=== PATIENT | female | born 1930 ===

== ENCOUNTER 2017-06-12 18:23 | Inpatient (IN) | payer MEDICARE ==
[2017-06-12 20:47] VITALS: BMI 22.4
[2017-06-12] MEDS ORDERED: Pneumococcal 23-Valent Vaccine IM ONE (20:47)
--- NOTE | 2017-06-12 22:08 | CP.PCM.HP ---
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 She was determined to have urosepsis ESBL E. coli, managed on IV Merrem. She was determined to be medically stable, and was transferred to [facility] as per her PMD (Aditya) for rehab. Today, patient reports no acute complaints. Daughter at bedside, reports pt at baseline mentation. Daughter reports dementia is at level where pt is occasionally forgetful, but always recognizes family, home, and is able to perform most ADLs (bathing, eating, dressing) by herself. Pt denies complaints of fever, chills, chest pain, shortness of breath , hematuria, dysuria, nausea, emesis, diarrhea, constipation, or new focal weakness. Has mainly intact ROM and use of R arm but diminished strength as compared to left. Denies lightheadedness, dizziness, room-spinning, or syncope/ near-syncope. Attributes falls to poor balance. Denies paresthesias of lower extremities. Daughter reports patient knows to call for help before ambulating , but occasionally forgets, and as per daughter, pt did have a fall while at [facility]. All other ROS in 12-system review were negative. As per discussion with daughter, as per patient's wishes, code status is DNR/ DNI. Charting amended to reflect this. PMH: as above PSH: right eye cataract extraction, tonsillectomy Fam Hx: father (hepatitis), brother (myelodysplastic disease, 17 PRBC transfusions), sister (DM), Social Hx: no smoking, alcohol, or drug abuse history. Lives with daughters, alternates monthly Person to Notify is Daughter: Paty (primary caregiver, NOT POA, pt has no POA) [phone] Present on Admission - Present on Admission Any Indicators Present on Admission: No History of DVT/PE: No History of Uncontrolled Diabetes: No Urinary Catheter: No Review of Systems - Review of Systems All systems: reviewed and no additional remarkable complaints except (as per HPI ) Past Patient History - Infectious Disease Hx of Infectious Diseases: None - Tetanus Immunizations Tetanus Immunization: Unknown - Past Medical History & Family History Past Medical History?: Yes - Past Social History Smoking Status: Former Smoker - CARDIAC Hx Hypertension: No - PULMONARY Hx Respiratory Disorders: Yes Hx Bronchitis: Yes Hx Pneumonia: Yes - NEUROLOGICAL Hx Neurological Disorder: Yes Hx Alzheimer's Disease: Yes Hx Dementia: Yes - HEENT Hx HEENT Problems: Yes Hx Cataracts: Yes (BOTH EYES) - RENAL Hx Chronic Kidney Disease: No - ENDOCRINE/METABOLIC Hx Diabetes Mellitus Type 2: Yes (IDDM) - HEMATOLOGICAL/ONCOLOGICAL Hx Blood Disorders: Yes Hx Anemia: Yes Hx Blood Transfusions: Yes Hx Chemotherapy: Yes Hx Leukemia: Yes - INTEGUMENTARY Hx Dermatological Problems: No - MUSCULOSKELETAL/RHEUMATOLOGICAL Hx Falls: Yes - GASTROINTESTINAL Hx Gastrointestinal Disorders: No - GENITOURINARY/GYNECOLOGICAL Hx Genitourinary Disorders: Yes (esbl /uti sepsis,SOME INCONTINENCY.WEARS PULLUPS.) Hx Reproductive Disorders: No - PSYCHIATRIC Hx Psychophysiologic Disorder: No Hx Substance Use: No - SURGICAL HISTORY Hx Surgeries: Yes Hx Tonsillectomy: Yes Other/Comment: HX:RIGHT SUBCLAVIAN PORTACATH INSERTION 08/06/16 - ANESTHESIA Hx Anesthesia: Yes Hx Anesthesia Reactions: No Hx Malignant Hyperthermia: No Meds Allergies/Adverse Reactions: Allergies Allergy/AdvReac Type Severity Reaction Status Date / Time amoxicillin Allergy Mild RASH Verified 06/12/17 20:26 Physical Exam - Constitutional Appears: Non-toxic, No Acute Distress - Head Exam Head Exam: ATRAUMATIC, NORMAL INSPECTION, NORMOCEPHALIC - Eye Exam Eye Exam: EOMI, Normal appearance, PERRL. absent: Conjunctival injection, Scleral icterus Pupil Exam: NORMAL ACCOMODATION, PERRL. absent: Irregular, Unequal - ENT Exam ENT Exam: Mucous Membranes Moist, Normal Exam - Neck Exam Neck exam: Positive for: Full Rom, Normal Inspection. Negative for: Lymphadenopathy, Thyromegaly - Respiratory Exam Respiratory Exam: Clear to Auscultation Bilateral, NORMAL BREATHING PATTERN. absent: Accessory Muscle Use, Chest Wall Tenderness, Decreased Breath Sounds, Rales, Rhonchi, Wheezes - Cardiovascular Exam Cardiovascular Exam: REGULAR RHYTHM, RRR, +S1, +S2. absent: Bradycardia, Tachycardia, Irregular Rhythm, JVD, +S4 - GI/Abdominal Exam GI & Abdominal Exam: Normal Bowel Sounds, Soft. absent: Diminished Bowel Sounds , Firm, Guarding, Hyperactive Bowel Sounds, Hypoactive Bowel Sounds, Rigid, Tenderness - Extremities Exam Extremities exam: Positive for: normal capillary refill, normal inspection, pedal pulses present. Negative for: calf tenderness, pedal edema, tenderness - Neurological Exam Additional comments: awake and alert, feeding self with right hand at time of exam, moving all extremities spontaneously, following all commands appropriately pushes off of chair to stand, only pushes with left arm, right arm normally in sling 5/5 hand household appliance installer bilaterally, 5/5 bilateral LE strength, 5/5 LUE strength, 3-4/5 RUE strength bilateral UE ROM grossly intact and equal - Psychiatric Exam Psychiatric exam: Normal Affect, Normal Mood - Skin Skin Exam: Dry, Intact, Normal Color, Warm Results - Vital Signs Recent Vital Signs: Last Vital Signs Temp 98.8 F 06/12/17 20:32 Pulse 83 06/12/17 20:32 Resp 18 06/12/17 20:32 BP 150/67 06/12/17 20:32 Pulse Ox Assessment & Plan - Assessment and Plan (Free Text) Assessment: This is an 87 yo F with PMH of DM-2 on insulin, HTN, 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 She was determined to have urosepsis ESBL E. coli, managed on IV Merrem. She was transferred to [facility] for reconditioning while continuing IV abx. Plan: 1) UTI -Sepsis secondary to UTI -Initial Criteria at [facility]: Febrile (Tmax 103F), WBC 13.5, 19 bands; afebrile today, wbcs 5.7 -UA (06/03/17): 3+ LE, 4669 WBC, Many WBC clumps, moderate bacteria -Urine Culture (06/03/17): ESBL -B/C: E.coli. Sensitive to Merrem -Was on Merrem 500mg Q8H IV (started 06/04/17) to receive for 2 weeks, Benadryl 25 mg IV PRN Q8H for pruritus/rash following carbapenem administration -ID (Dr. Joaquin) consulted to continue Merrem -Renal U/S normal findings at [facility] 2) Bacteremia -Positive blood cultures noted 06/04 for ESBL e.coli. Sensitive to Merrem. Will need coverage for 2 weeks as per [facility] ID -Repeat cultures positive 06/07 for Coag Neg Staph, Probable contaminant; Blood cultures 06/09 Negative after 48 hours. 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 Gomez) to confirm -Hgb stable, high 9's-10's since transfusion 2 units pRBCs at [facility] 06/04/17; 10.2 today -EKG on admit - NSR, intervals unremarkable, no ST-T changes -Monitor temp. -As per Heme-onc at [facility], transfuse prn 4) MDS -Following with Dr. Gomez (Heme-onc) for outpatient treatment -As per his last note at [facility], transfuse PRN 5) DM -Levemir 10 U SC HS, Lispro low ISS ACHS -Accuchecks ACHS 6) CAD -Aspirin 81 mg PO daily 7) HTN -continue Lisinopril Dispo: TCU, pending ID eval, pending PT FEN: Heart-healthy consistent carb Access: Peripheral IV Consults: ID Ppx: Pepcid for GI, SCDs for DVT Patient reviewed and discussed with attending, Dr. Beckman Decision To Admit - Pt Status Changed To: Hospital Disposition Of: Inpatient Admission - Admit Certification Admit to Inpatient:: After my assessment, the patient will require hospitalization for at least two midnights. This is because of the severity of symptoms shown, intensity of services needed, and/or the medical risk in this patient being treated as an outpatient. - . Bed Request Type: TRCU <Slava Beckman - Last Filed: 06/13/17 05:24> Results - Vital Signs Recent Vital Signs: Last Vital Signs Temp 98.8 F 06/12/17 20:32 Pulse 83 06/12/17 20:32 Resp 18 06/12/17 20:32 BP 150/67 06/12/17 20:32 Pulse Ox - Labs Labs: Laboratory Results - last 24 hr 06/13/17 01:49 POC Glucose (mg/dL) 222 H Attending/Attestation - Attestation I have personally seen and examined this patient.: Yes I have fully participated in the care of the patient.: Yes I have reviewed all pertinent clinical information: Yes
[2017-06-12] MEDS ORDERED: DiphenhydrAMINE 50 mg/ml Inj IVP PRN (22:13)
[2017-06-12] MEDS: Meropenem 500 MG in Sodium Chloride 0.9% 50 ML IVPB SCH (22:42)
[2017-06-12] MEDS: Insulin Lispro (humaLOG) LOW Coverage SC SCH (22:42)
[2017-06-12] MEDS: Insulin Detemir 100 units/ml Vial (Levemir) SC SCH (22:44)
[2017-06-13] MEDS: Meropenem 500 MG in Sodium Chloride 0.9% 50 ML IVPB SCH (05:08)
[2017-06-13] MEDS: Insulin Lispro (humaLOG) LOW Coverage SC SCH ×4 (06:41→22:01)
[2017-06-13 08:50] LABS: BASO # 0.04 K/mm3 (0.0-2.0); BASO % 0.7 % (0.0-3.0); EOS # 0.3 (0.0-0.7); EOS % 5.9 % (1.5-5.0); GRAN # 2.86 (1.4-6.5); GRAN % 53.1 % (50.0-68.0); LYMPH # 1.8 (1.2-3.4); LYMPH % 33.3 % (22.0-35.0); MEAN CELL VOLUME 98.3 fl (80.0-105.0); MEAN CORPUSCULAR HEMOGLOBIN 33.4 pg (25.0-35.0); MEAN PLATELET VOLUME 12.1 fl (7.0-11.0); MONO # 0.4 (0.1-0.6); RBC 2.99 10^6/uL (3.5-6.1); RED CELL DISTRIBUTION WIDTH 19.5 % (11.5-14.5); WHITE BLOOD COUNT 5.4 10^3/ul (4.5-11.0)
[2017-06-13 08:56] LABS: ALBUMIN 3.9 g/dL (3.0-4.8); ALT/SGPT 27 U/L (7-56); AST/SGOT 44 U/L (14-36); BLOOD UREA NITROGEN 32 mg/dL (7-21); GFR AFRICAN-AMERICAN > 60; GFR NON-AFRICAN AMERICAN 52
[2017-06-13] MEDS: Multivitamin With Minerals Tab PO SCH (10:31)
[2017-06-13] MEDS: Insulin Detemir 100 units/ml Vial (Levemir) SC SCH (22:01)
[2017-06-13] MEDS: Meropenem IV 1 gm in NS 50 ML IVPB SCH (22:02)
[2017-06-14] MEDS: Meropenem IV 1 gm in NS 50 ML IVPB SCH ×2 (05:41→22:03)
[2017-06-14] MEDS: Insulin Lispro (humaLOG) LOW Coverage SC SCH ×4 (06:51→21:28)
--- NOTE | 2017-06-14 07:26 | CON ---
DATE: 06/13/2017 LOCATION: The patient was seen earlier this morning in room 315. CHIEF COMPLAINT: Weakness times several days. HISTORY OF PRESENT ILLNESS: This is an 87-year-old female with hypertension, diabetes, myelodysplastic syndrome, mild dementia, high cholesterol, anemia, and a history of right proximal humerus fracture without any surgery, who was admitted to [facility] found to have ESBL E. coli bacteremia with ESBL E. coli urinary tract infection, and transferred to transitional care here in [facility] in room 315 for completion of her antibiotic therapy. At this point, patient is at baseline mental status. There has been no fevers, no chills. There is frequency and dysuria. No chest pain. REVIEW OF SYSTEMS: A 12-point review of systems is noted. There has been no chest pain, shortness of breath, or cough. No hemoptysis, melena, diarrhea or constipation. PAST MEDICAL HISTORY: Significant for hypertension, diabetes mellitus, myelodysplastic syndrome, dementia, high cholesterol, anemia, right proximal humerus fracture with a sling. PAST SURGICAL HISTORY: Significant for right eye extraction and tonsillectomy. ALLERGIES: PATIENT IS ALLERGIC TO AMOXICILLIN, SHE DEVELOPED RASH. MEDICATIONS: Reviewed. PHYSICAL EXAMINATION: VITAL SIGNS: The patient's temperature is 98, blood pressure is 137/60, respiratory rate of 18, heart rate of 73. HEENT: Unremarkable. NECK: Supple. LUNGS: Have decreased breath sounds. HEART: Normal S1, S2. ABDOMEN: Soft, nontender. LABORATORY EXAMINATION: Reveals white count of 5.4, hemoglobin of 10, platelets of 224. Chemistries reveals the patient's BUN is 32, creatinine is 1. Microbiology: Reveals the patient's blood cultures of E. coli ESBL from 06/04/2017, reported to be positive E. coli in the urine, E. coli n the blood. Repeat blood cultures on the 06/09/2017 were negative and no growth. ASSESSMENT AND PLAN: This is an 87-year-old female with hypertension, diabetes, myelodysplastic syndrome, dementia, high cholesterol, anemia, right proximal humerus fracture with extended-spectrum beta-lactamase bacteremia with extended-spectrum beta-lactamase Escherichia coli urinary tract infection. Will complete 10 to 14 days of meropenem. We will follow with you. Jonathan Joaquin MD [facility] # [id number]
[2017-06-14] MEDS: Multivitamin With Minerals Tab PO SCH (09:51)
--- NOTE | 2017-06-14 15:48 | CP.PCM.PN ---
<Misael Waters - Last Filed: 06/14/17 15:44> Subjective - Date & Time of Evaluation Date of Evaluation: 06/14/17 Time of Evaluation: 07:30 - Subjective Subjective: IM Progress Note for Hospitalist Service Patient seen and examined at bedside in TCU. No acute complaints, no acute events overnight reported. Eating breakfast at time of exam. Denies chest pain , shortness of breath, dysuria, abdominal pain. Reports walking well with PT. Objective - Vital Signs/Intake and Output Vital Signs (last 24 hours): Temp Pulse Resp BP Pulse Ox 98.0 F 88 20 150/78 96 06/14/17 12:00 06/14/17 12:00 06/14/17 12:00 06/14/17 12:00 06/14/17 06:00 - Medications Medications: Current Medications Acetaminophen (Tylenol 325mg Tab) 650 mg PO Q6H PRN PRN Reason: Fever >100.4 F Aspirin (Aspirin Chewable) 81 mg PO DAILY [facility] Last Admin: 06/14/17 09:51 Dose: 81 mg Diphenhydramine HCl (Benadryl) 25 mg IVP Q8 PRN PRN Reason: Pruritis/Rash s/p Merrem admin Famotidine (Pepcid) 20 mg PO HS [facility] Last Admin: 06/13/17 22:03 Dose: 20 mg Meropenem (Merrem Iv 1 Gm Premix) 50 mls @ 100 mls/hr IVPB Q12 VERONICA PRN Reason: Protocol Stop: 06/22/17 22:01 Insulin Detemir (Levemir) 10 unit SC HS [facility] Last Admin: 06/13/17 22:01 Dose: 10 unit Insulin Human Lispro (Humalog Low) 0 units SC ACHS VERONICA PRN Reason: Protocol Last Admin: 06/14/17 11:39 Dose: Not Given Lisinopril (Zestril) 2.5 mg PO DAILY [facility] Last Admin: 06/14/17 09:51 Dose: 2.5 mg Multivitamins/Minerals (Therapeutic-M Tab) 1 tab PO DAILY [facility] Last Admin: 06/14/17 09:51 Dose: 1 tab Mupirocin (Bactroban Ointment) 22 gm TOP BID [facility] Last Admin: 06/14/17 09:51 Dose: 1 applic Tramadol HCl (Ultram) 50 mg PO TID PRN PRN Reason: Pain, severe (8-10) - Labs Labs: 06/13/17 06:45 06/13/17 06:45 - Additional Findings Additional findings: - Constitutional Appears: Non-toxic, No Acute Distress - Head Exam Head Exam: ATRAUMATIC, NORMAL INSPECTION, NORMOCEPHALIC - Eye Exam Eye Exam: EOMI, Normal appearance, PERRL. absent: Conjunctival injection, Scleral icterus Pupil Exam: NORMAL ACCOMODATION, PERRL. absent: Irregular, Unequal - ENT Exam ENT Exam: Mucous Membranes Moist, Normal Exam - Neck Exam Neck exam: Positive for: Full Rom, Normal Inspection. Negative for: Lymphadenopathy, Thyromegaly - Respiratory Exam Respiratory Exam: Clear to Auscultation Bilateral, NORMAL BREATHING PATTERN. absent: Accessory Muscle Use, Chest Wall Tenderness, Decreased Breath Sounds, Rales, Rhonchi, Wheezes - Cardiovascular Exam Cardiovascular Exam: REGULAR RHYTHM, RRR, +S1, +S2. absent: Bradycardia, Tachycardia, Irregular Rhythm, JVD, +S4 - GI/Abdominal Exam GI & Abdominal Exam: Normal Bowel Sounds, Soft. absent: Diminished Bowel Sounds , Firm, Guarding, Hyperactive Bowel Sounds, Hypoactive Bowel Sounds, Rigid, Tenderness - Extremities Exam Extremities exam: Positive for: normal capillary refill, normal inspection, pedal pulses present. 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 She was determined to have urosepsis ESBL E. coli, managed on IV Merrem. She was transferred to [facility] for reconditioning while continuing IV abx. Plan: 1) UTI -Sepsis secondary to UTI -Initial Criteria at [facility]: Febrile (Tmax 103F), WBC 13.5, 19 bands; afebrile today, wbcs 5.7 on admission to TCU -UA (06/03/17): 3+ LE, 4669 WBC, Many WBC clumps, moderate bacteria -Urine Culture (06/03/17): ESBL -B/C: E.coli. Sensitive to Merrem -Was on Merrem 500mg Q8H IV (started 06/04/17) to receive for 2 weeks, Benadryl 25 mg IV PRN Q8H for pruritus/rash following carbapenem administration -ID (Dr. Joaquin) consulted to continue Merrem -Renal U/S normal findings at [facility] 2) Bacteremia -Positive blood cultures noted 06/04 for ESBL e.coli. Sensitive to Merrem. Will need coverage for 2 weeks as per [facility] ID -Repeat cultures positive 06/07 for Coag Neg Staph, Probable contaminant; Blood cultures 06/09 Negative after 48 hours. 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 Gomez) to confirm -Hgb stable, high 9's-10's since transfusion 2 units pRBCs at [facility] 06/04/17; 10.2 on admission to TCU -EKG on admit - NSR, intervals unremarkable, no ST-T changes -Monitor temp. -As per Heme-onc at [facility], transfuse prn -no complaints consistent with anemia today 4) MDS -Following with Dr. Gomez (Heme-onc) for outpatient treatment -As per his last note at [facility], transfuse PRN 5) DM -Levemir 10 U SC HS, Lispro low ISS ACHS -Accuchecks ACHS 6) CAD -Aspirin 81 mg PO daily 7) HTN -continue Lisinopril Dispo: TCU, continuing IV Merrem for ESBL E coli, undergoing strengthening, planned date of d/c 06/20/17 FEN: Heart-healthy consistent carb Access: Peripheral IV Consults: ID Ppx: Pepcid for GI, SCDs for DVT Patient reviewed and discussed with attending, Dr. Thorpe <Dylan Thorpe - Last Filed: 06/15/17 13:37> Objective - Vital Signs/Intake and Output Vital Signs (last 24 hours): Temp Pulse Resp BP Pulse Ox 98.2 F 70 18 99/52 L 96 06/15/17 06:00 06/15/17 09:21 06/15/17 06:00 06/15/17 09:21 06/15/17 06:00 - Medications Medications: Current Medications Acetaminophen (Tylenol 325mg Tab) 650 mg PO Q6H PRN PRN Reason: Fever >100.4 F Aspirin (Aspirin Chewable) 81 mg PO DAILY [facility] Last Admin: 06/15/17 09:21 Dose: 81 mg Diphenhydramine HCl (Benadryl) 25 mg IVP Q8 PRN PRN Reason: Pruritis/Rash s/p Merrem admin Famotidine (Pepcid) 20 mg PO HS [facility] Last Admin: 06/14/17 21:24 Dose: 20 mg Meropenem (Merrem Iv 1 Gm Premix) 50 mls @ 100 mls/hr IVPB Q12 VERONICA PRN Reason: Protocol Stop: 06/22/17 22:01 Last Admin: 06/15/17 09:21 Dose: 100 mls/hr Insulin Detemir (Levemir) 10 unit SC HS [facility] Last Admin: 06/14/17 21:28 Dose: 10 unit Insulin Human Lispro (Humalog Low) 0 units SC ACHS VERONICA PRN Reason: Protocol Last Admin: 06/15/17 12:30 Dose: 3 units Lisinopril (Zestril) 2.5 mg PO DAILY [facility] Last Admin: 06/15/17 09:21 Dose: Not Given Multivitamins/Minerals (Therapeutic-M Tab) 1 tab PO DAILY [facility] Last Admin: 06/15/17 09:21 Dose: 1 tab Mupirocin (Bactroban Ointment) 22 gm TOP BID [facility] Last Admin: 06/15/17 11:00 Dose: 1 applic Tramadol HCl (Ultram) 50 mg PO TID PRN PRN Reason: Pain, severe (8-10) - Labs Labs: 06/13/17 06:45 06/13/17 06:45 Attending/Attestation - Attestation I have personally seen and examined this patient.: Yes I have fully participated in the care of the patient.: Yes I have reviewed all pertinent clinical information, including history, physical exam and plan: Yes Notes (Text): 06/15/17 13:33 Hospitalist note; Patient seen and examined in TCU. This is an 87 -year-old female with PMH of DM-2 on insulin, hypertension, MDS , Hypercholesterolemia, chronic anemia due to MDS, dementia, and R proximal humerus fx (s/p sling, no surgery) who presented originally to [facility] with lethargy consistent with prior anemic episodes and foul-smelling urine. She was determined to have urosepsis ESBL E. coli, managed on IV Merrem. She was transferred to [facility] for reconditioning while continuing IV abx. patient is afebrile and nontoxic. Tolerating diet. Getting physical therapy. Continue IV anti-biotics. ID evaluation appreciated. patient is DNI DNR. Patient lives with daughter at home. Home services will be arranged upon discharge. upon discharge the patient will follow-up with [facility] clinic or PMD of choice. 06/15/17 13:37
--- NOTE | 2017-06-14 19:03 | CP.PCM.PN ---
Subjective - Date & Time of Evaluation Date of Evaluation: 06/14/17 Time of Evaluation: 11:50 - Subjective Subjective: Comfortable, afebrile. Objective - Vital Signs/Intake and Output Vital Signs (last 24 hours): Temp Pulse Resp BP Pulse Ox 97.5 F L 79 18 141/60 98 06/13/17 16:59 06/13/17 16:59 06/13/17 16:59 06/13/17 16:59 06/13/17 16:59 - Medications Medications: Current Medications Acetaminophen (Tylenol 325mg Tab) 650 mg PO Q6H PRN PRN Reason: Fever >100.4 F Aspirin (Aspirin Chewable) 81 mg PO DAILY [facility] Last Admin: 06/13/17 10:30 Dose: 81 mg Diphenhydramine HCl (Benadryl) 25 mg IVP Q8 PRN PRN Reason: Pruritis/Rash s/p Merrem admin Famotidine (Pepcid) 20 mg PO HS [facility] Last Admin: 06/13/17 22:03 Dose: 20 mg Meropenem (Merrem Iv 1 Gm Premix) 50 mls @ 100 mls/hr IVPB Q8 VERONICA PRN Reason: Protocol Stop: 06/22/17 22:01 Last Admin: 06/13/17 22:02 Dose: 100 mls/hr Insulin Detemir (Levemir) 10 unit SC HS [facility] Last Admin: 06/13/17 22:01 Dose: 10 unit Insulin Human Lispro (Humalog Low) 0 units SC ACHS VERONICA PRN Reason: Protocol Last Admin: 06/13/17 22:01 Dose: Not Given Lisinopril (Zestril) 2.5 mg PO DAILY [facility] Last Admin: 06/13/17 10:31 Dose: 2.5 mg Multivitamins/Minerals (Therapeutic-M Tab) 1 tab PO DAILY [facility] Last Admin: 06/13/17 10:31 Dose: 1 tab Mupirocin (Bactroban Ointment) 22 gm TOP BID [facility] Last Admin: 06/13/17 17:56 Dose: 1 applic Tramadol HCl (Ultram) 50 mg PO TID PRN PRN Reason: Pain, severe (8-10) - Labs Labs: 06/13/17 06:45 06/13/17 06:45 - Constitutional Appears: Chronically Ill - Head Exam Head Exam: NORMAL INSPECTION - Respiratory Exam Respiratory Exam: Decreased Breath Sounds - Cardiovascular Exam Cardiovascular Exam: +S1, +S2 - GI/Abdominal Exam GI & Abdominal Exam: Soft. absent: Tenderness Assessment and Plan - Assessment and Plan (Free Text) Plan: Assessment ESBL E. coli bacteremia from UTI history of sepsis from community-acquired pneumonia history of Right vulvar skin and skin structure infection with discharge, grew MRSA histor of Asymptomatic bacteriuria with VRE HTN DM myelodysplastic disease mild dementia Plan continue Merrem day 3 to complete 10-14 days of therapy
[2017-06-14] MEDS: Insulin Detemir 100 units/ml Vial (Levemir) SC SCH (21:28)
[2017-06-15] MEDS: Insulin Lispro (humaLOG) LOW Coverage SC SCH ×4 (06:39→21:45)
[2017-06-15] MEDS: Meropenem IV 1 gm in NS 50 ML IVPB SCH ×2 (09:21→21:37)
[2017-06-15] MEDS: Multivitamin With Minerals Tab PO SCH (09:21)
--- NOTE | 2017-06-15 19:07 | PN ---
DATE: 06/15/2017 SUBJECTIVE: The patient is in bed, in no acute distress, nontoxic. OBJECTIVE: VITAL SIGNS: Temperature is 98, blood pressure is 98/40, respiratory rate of 18, heart rate of 74. HEENT: Unremarkable. NECK: Supple. LUNGS: Decreased breath sounds. HEART: Normal S1, S2. ABDOMEN: Soft, nontender. LABORATORY EXAMINATION: Reviewed. ASSESSMENT AND PLAN: This is an 87-year-old female with extended-spectrum beta-lactamase Escherichia coli bacteremia with extended-spectrum beta-lactamase Escherichia coli urinary tract infection with a history of sepsis and community-acquired pneumonia, history of right lobe of methicillin-resistant Staphylococcus aureus, history of bacteriuria with vancomycin-resistant Enterococcus, hypertension, diabetes, myelodysplastic disease, and mild dementia. Today is day #4 of 10 to 14 days meropenem and patient's white count of 5.4. Chemistries are noted. Creatinine is 1. Review of orders revealed the patient to be on meropenem. Jonathan Joaquin MD
[2017-06-15] MEDS: Insulin Detemir 100 units/ml Vial (Levemir) SC SCH (21:38)
[2017-06-16] MEDS: Insulin Lispro (humaLOG) LOW Coverage SC SCH ×4 (06:42→22:00)
[2017-06-16] MEDS: Multivitamin With Minerals Tab PO SCH (10:19)
[2017-06-16] MEDS: Meropenem IV 1 gm in NS 50 ML IVPB SCH ×2 (10:21→21:59)
--- NOTE | 2017-06-16 11:22 | CP.PCM.PN ---
<Ankush Ellison - Last Filed: 06/16/17 11:11> Subjective - Date & Time of Evaluation Date of Evaluation: 06/16/17 Time of Evaluation: 10:00 - Subjective Subjective: Subjective: Patient seen and examined at bedside. Resting comfortably in bedside chair. No acute overnight events. Patient states therapy is helping improve her functional baseline. Offers no new complaints at this time. Denies fever, chills , chest pain, shortness of breath, abdominal pain, nausea, vomiting, diarrhea, constipation, and urinary symptoms. 12-point review of systems negative except as indicated in the HPI Physical Examination: - Constitutional Appears: Non-toxic, No Acute Distress - Head Exam Head Exam: ATRAUMATIC, NORMAL INSPECTION, NORMOCEPHALIC - Eye Exam Eye Exam: EOMI, Normal appearance, PERRL. absent: Conjunctival injection, Scleral icterus - ENT Exam ENT Exam: Mucous Membranes Moist, Normal Exam - Neck Exam Neck exam: Positive for: Full Rom, Normal Inspection. Negative for: Lymphadenopathy, Thyromegaly - Respiratory Exam Respiratory Exam: Clear to Auscultation Bilateral, NORMAL BREATHING PATTERN. absent: Accessory Muscle Use, Chest Wall Tenderness, Decreased Breath Sounds, Rales, Rhonchi, Wheezes - Cardiovascular Exam Cardiovascular Exam: REGULAR RHYTHM, RRR, +S1, +S2. absent: Bradycardia, Tachycardia, Irregular Rhythm, JVD, +S4 - GI/Abdominal Exam GI & Abdominal Exam: Normal Bowel Sounds, Soft. absent: Diminished Bowel Sounds , Firm, Guarding, Hyperactive Bowel Sounds, Hypoactive Bowel Sounds, Rigid, Tenderness - Extremities Exam Extremities exam: right arm in sling, Positive for: normal capillary refill, normal inspection, pedal pulses present. 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 She was determined to have urosepsis ESBL E. coli, managed on IV Merrem. She was transferred to [facility] for reconditioning while continuing IV abx. UTI -Positive blood cultures noted 06/04 for ESBL e.coli. Sensitive to Merrem. 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 Gomez (Heme-onc) for outpatient treatment -As per his last note at [facility], transfuse PRN DM -Levemir 10 U SC HS, -Lispro low ISS -Accuchecks ACHS CAD -Aspirin 81 mg PO daily HTN -continue Lisinopril Prophylaxis - Pepcid for GI - SCDs for DVT Patient reviewed and discussed with attending, Dr. Thorpe Objective - Vital Signs/Intake and Output Vital Signs (last 24 hours): Temp Pulse Resp BP Pulse Ox 97.9 F 73 20 123/57 L 90 L 06/15/17 16:00 06/16/17 10:20 06/15/17 16:00 06/16/17 10:20 06/15/17 10:00 - Medications Medications: Current Medications Acetaminophen (Tylenol 325mg Tab) 650 mg PO Q6H PRN PRN Reason: Fever >100.4 F Aspirin (Aspirin Chewable) 81 mg PO DAILY [facility] Last Admin: 06/16/17 10:19 Dose: 81 mg Diphenhydramine HCl (Benadryl) 25 mg IVP Q8 PRN PRN Reason: Pruritis/Rash s/p Merrem admin Famotidine (Pepcid) 20 mg PO HS [facility] Last Admin: 06/15/17 21:38 Dose: 20 mg Meropenem (Merrem Iv 1 Gm Premix) 50 mls @ 100 mls/hr IVPB Q12 [facility] PRN Reason: Protocol Stop: 06/22/17 22:01 Last Admin: 06/16/17 10:21 Dose: 100 mls/hr Insulin Detemir (Levemir) 10 unit SC HS [facility] Last Admin: 06/15/17 21:38 Dose: 10 unit Insulin Human Lispro (Humalog Low) 0 units SC ACHS [facility] PRN Reason: Protocol Last Admin: 06/16/17 06:42 Dose: Not Given Lisinopril (Zestril) 2.5 mg PO DAILY [facility] Last Admin: 06/16/17 10:20 Dose: 2.5 mg Multivitamins/Minerals (Therapeutic-M Tab) 1 tab PO DAILY [facility] Last Admin: 06/16/17 10:19 Dose: 1 tab Mupirocin (Bactroban Ointment) 22 gm TOP BID [facility] Last Admin: 06/16/17 10:21 Dose: 1 applic Tramadol HCl (Ultram) 50 mg PO TID PRN PRN Reason: Pain, severe (8-10) - Labs Labs: 06/13/17 06:45 06/13/17 06:45 <Dylan Thorpe - Last Filed: 06/16/17 13:39> Objective - Vital Signs/Intake and Output Vital Signs (last 24 hours): Temp Pulse Resp BP Pulse Ox 97.9 F 73 20 123/57 L 90 L 06/15/17 16:00 06/16/17 10:20 06/15/17 16:00 06/16/17 10:20 06/15/17 10:00 - Medications Medications: Current Medications Acetaminophen (Tylenol 325mg Tab) 650 mg PO Q6H PRN PRN Reason: Fever >100.4 F Aspirin (Aspirin Chewable) 81 mg PO DAILY [facility] Last Admin: 06/16/17 10:19 Dose: 81 mg Diphenhydramine HCl (Benadryl) 25 mg IVP Q8 PRN PRN Reason: Pruritis/Rash s/p Merrem admin Famotidine (Pepcid) 20 mg PO HS [facility] Last Admin: 06/15/17 21:38 Dose: 20 mg Meropenem (Merrem Iv 1 Gm Premix) 50 mls @ 100 mls/hr IVPB Q12 [facility] PRN Reason: Protocol Stop: 06/22/17 22:01 Last Admin: 06/16/17 10:21 Dose: 100 mls/hr Insulin Detemir (Levemir) 10 unit SC HS [facility] Last Admin: 06/15/17 21:38 Dose: 10 unit Insulin Human Lispro (Humalog Low) 0 units SC ACHS [facility] PRN Reason: Protocol Last Admin: 06/16/17 11:47 Dose: Not Given Lisinopril (Zestril) 2.5 mg PO DAILY [facility] Last Admin: 06/16/17 10:20 Dose: 2.5 mg Multivitamins/Minerals (Therapeutic-M Tab) 1 tab PO DAILY [facility] Last Admin: 06/16/17 10:19 Dose: 1 tab Mupirocin (Bactroban Ointment) 22 gm TOP BID [facility] Last Admin: 06/16/17 10:21 Dose: 1 applic Tramadol HCl (Ultram) 50 mg PO TID PRN PRN Reason: Pain, severe (8-10) - Labs Labs: 06/13/17 06:45 06/13/17 06:45 Attending/Attestation - Attestation I have personally seen and examined this patient.: Yes I have fully participated in the care of the patient.: Yes I have reviewed all pertinent clinical information, including history, physical exam and plan: Yes Notes (Text): 06/16/17 13:39 Hospitalist note; Patient seen and examined in TCU. This is an 87 -year-old female with PMH of DM-2 on insulin, hypertension, MDS , Hypercholesterolemia, chronic anemia due to MDS, dementia, and R proximal humerus fx (s/p sling, no surgery) who presented originally to [facility] with lethargy consistent with prior anemic episodes and foul-smelling urine. She was determined to have urosepsis ESBL E. coli, managed on IV Merrem. She was transferred to [facility] for reconditioning while continuing IV abx. patient is afebrile and nontoxic. Tolerating diet. Getting physical therapy. R humerus fracture. on sling. Continue IV anti-biotics. ID evaluation appreciated. patient is DNI DNR. Patient lives with daughter at home. Home services will be arranged upon discharge. upon discharge the patient will follow-up with [facility] clinic or PMD of choice.
[2017-06-16] MEDS: Insulin Detemir 100 units/ml Vial (Levemir) SC SCH (22:00)
--- NOTE | 2017-06-16 22:27 | PN ---
DATE: 06/16/2017 SUBJECTIVE: The patient is in bed, in no acute distress, nontoxic. PHYSICAL EXAMINATION: VITAL SIGNS: Temperature is 98, blood pressure is 120/70, respiratory rate of 16. HEENT: Unremarkable. NECK: Supple. LUNGS: Decreased breath sounds. HEART: Normal S1, S2. ABDOMEN: Soft, nontender. LABORATORY EXAMINATION: Revels a white count of 5.4 and chemistries are noted and reviewed. Review of orders revel the patient to be on meropenem. ASSESSMENT AND PLAN: This is an 87-year-old female who was seen earlier this morning in room 315 with extended-spectrum beta-lactamase Escherichia coli bacteremia and extended-spectrum beta-lactamase Escherichia coli urinary tract infection, history of sepsis with community-acquired pneumonia, history of right methicillin-resistant Staphylococcus aureus, history of bacteriuria and vancomycin-resistant Enterococcus, diabetes, myelodysplastic syndrome, and mild dementia. Today is day #5 of 10 to 14 days of meropenem. We will follow with you. Jonathan Joaquin MD
[2017-06-17] MEDS: Insulin Lispro (humaLOG) LOW Coverage SC SCH ×4 (06:44→21:25)
[2017-06-17] MEDS: Multivitamin With Minerals Tab PO SCH (09:37)
[2017-06-17] MEDS: Meropenem IV 1 gm in NS 50 ML IVPB SCH ×2 (09:37→21:22)
[2017-06-17 18:21] LABS: BASO # 0.06 K/mm3 (0.0-2.0); BASO % 1.1 % (0.0-3.0); EOS # 0.3 (0.0-0.7); EOS % 5.9 % (1.5-5.0); GRAN % 54.9 % (50.0-68.0); HEMOGLOBIN 9.9 g/dL (12.0-16.0); LYMPH # 1.8 (1.2-3.4); LYMPH % 33.3 % (22.0-35.0); MEAN CELL VOLUME 99.7 fl (80.0-105.0); MEAN CORPUSCULAR HEMOGLOBIN 34.1 pg (25.0-35.0); MEAN CORPUSCULAR HGB CONC 34.3 g/dl (31.0-37.0); MEAN PLATELET VOLUME 11.7 fl (7.0-11.0); MONO # 0.3 (0.1-0.6); MONO % 4.8 % (1.0-6.0); RBC 2.9 10^6/uL (3.5-6.1); RED CELL DISTRIBUTION WIDTH 19.7 % (11.5-14.5); WHITE BLOOD COUNT 5.5 10^3/ul (4.5-11.0)
[2017-06-17 18:50] LABS: CALCIUM 9.2 mg/dL (8.4-10.5)
[2017-06-17] MEDS: Insulin Detemir 100 units/ml Vial (Levemir) SC SCH (21:25)
--- NOTE | 2017-06-17 21:48 | CP.PCM.PN ---
Subjective - Date & Time of Evaluation Date of Evaluation: 06/17/17 Time of Evaluation: 11:50 - Subjective Subjective: No fevers, no nausea, not in distress. Objective - Vital Signs/Intake and Output Vital Signs (last 24 hours): Temp Pulse Resp BP Pulse Ox 98.1 F 61 18 117/82 95 06/17/17 17:37 06/17/17 17:37 06/17/17 17:37 06/17/17 17:37 06/17/17 17:37 - Medications Medications: Current Medications Acetaminophen (Tylenol 325mg Tab) 650 mg PO Q6H PRN PRN Reason: Fever >100.4 F Aspirin (Aspirin Chewable) 81 mg PO DAILY [facility] Last Admin: 06/17/17 09:37 Dose: 81 mg Diphenhydramine HCl (Benadryl) 25 mg IVP Q8 PRN PRN Reason: Pruritis/Rash s/p Merrem admin Famotidine (Pepcid) 20 mg PO HS [facility] Last Admin: 06/17/17 21:22 Dose: 20 mg Meropenem (Merrem Iv 1 Gm Premix) 50 mls @ 100 mls/hr IVPB Q12 [facility] PRN Reason: Protocol Stop: 06/22/17 22:01 Last Admin: 06/17/17 21:22 Dose: 100 mls/hr Insulin Detemir (Levemir) 10 unit SC HS [facility] Last Admin: 06/17/17 21:25 Dose: Not Given Insulin Human Lispro (Humalog Low) 0 units SC ACHS [facility] PRN Reason: Protocol Last Admin: 06/17/17 21:25 Dose: Not Given Lisinopril (Zestril) 2.5 mg PO DAILY [facility] Last Admin: 06/17/17 09:36 Dose: 2.5 mg Multivitamins/Minerals (Therapeutic-M Tab) 1 tab PO DAILY [facility] Last Admin: 06/17/17 09:37 Dose: 1 tab Mupirocin (Bactroban Ointment) 22 gm TOP BID [facility] Last Admin: 06/17/17 17:30 Dose: 1 applic Tramadol HCl (Ultram) 50 mg PO TID PRN PRN Reason: Pain, severe (8-10) - Labs Labs: 06/17/17 18:15 06/17/17 18:15 - Constitutional Appears: Chronically Ill - Head Exam Head Exam: NORMAL INSPECTION - ENT Exam ENT Exam: Mucous Membranes Moist - Neck Exam Neck Exam: absent: Meningismus - Respiratory Exam Respiratory Exam: Decreased Breath Sounds - Cardiovascular Exam Cardiovascular Exam: +S1, +S2 - GI/Abdominal Exam GI & Abdominal Exam: Soft. absent: Tenderness Assessment and Plan - Assessment and Plan (Free Text) Plan: Assessment ESBL E. coli bacteremia from UTI history of sepsis from community-acquired pneumonia history of Right vulvar skin and skin structure infection with discharge, grew MRSA histor of Asymptomatic bacteriuria with VRE HTN DM myelodysplastic disease mild dementia Plan continue Merrem day 6 to complete 10-14 days of therapy
[2017-06-18] MEDS: Insulin Lispro (humaLOG) LOW Coverage SC SCH ×5 (06:29→22:20)
[2017-06-18 07:38] LABS: BASO # 0.06 K/mm3 (0.0-2.0); BASO % 1.1 % (0.0-3.0); EOS # 0.4 (0.0-0.7); EOS % 7.2 % (1.5-5.0); GRAN # 2.65 (1.4-6.5); GRAN % 49.2 % (50.0-68.0); HEMOGLOBIN 9.1 g/dL (12.0-16.0); LYMPH # 1.8 (1.2-3.4); MEAN CELL VOLUME 99.3 fl (80.0-105.0); MEAN CORPUSCULAR HEMOGLOBIN 33.8 pg (25.0-35.0); MEAN CORPUSCULAR HGB CONC 34.1 g/dl (31.0-37.0); MEAN PLATELET VOLUME 11.7 fl (7.0-11.0); MONO # 0.5 (0.1-0.6); MONO % 8.5 % (1.0-6.0); RBC 2.69 10^6/uL (3.5-6.1); RED CELL DISTRIBUTION WIDTH 19.7 % (11.5-14.5); WHITE BLOOD COUNT 5.4 10^3/ul (4.5-11.0)
[2017-06-18 07:51] LABS: CALCIUM 9.1 mg/dL (8.4-10.5)
[2017-06-18] MEDS: Meropenem IV 1 gm in NS 50 ML IVPB SCH ×2 (09:52→21:21)
[2017-06-18] MEDS: Multivitamin With Minerals Tab PO SCH (09:53)
--- NOTE | 2017-06-18 14:05 | CP.PCM.PN ---
<Misael Waters - Last Filed: 06/18/17 14:02> Subjective - Date & Time of Evaluation Date of Evaluation: 06/18/17 Time of Evaluation: 07:40 - Subjective Subjective: IM Progress Note for Hospitalist Service Patient seen and examined at bedside in TCU. No acute complaints, no acute events overnight reported. Resting but easily arousable at time of exam. Denies chest pain, shortness of breath, dysuria, abdominal pain. Reports walking well with PT. Pending possible discharge tonight or tomorrow, as per family's wishes. Objective - Vital Signs/Intake and Output Vital Signs (last 24 hours): Temp Pulse Resp BP Pulse Ox 97.4 F L 76 20 138/57 L 100 06/18/17 11:06 06/18/17 11:06 06/18/17 11:06 06/18/17 11:06 06/18/17 11:06 - Medications Medications: Current Medications Acetaminophen (Tylenol 325mg Tab) 650 mg PO Q6H PRN PRN Reason: Fever >100.4 F Aspirin (Aspirin Chewable) 81 mg PO DAILY [facility] Last Admin: 06/18/17 09:52 Dose: 81 mg Diphenhydramine HCl (Benadryl) 25 mg IVP Q8 PRN PRN Reason: Pruritis/Rash s/p Merrem admin Famotidine (Pepcid) 20 mg PO HS [facility] Last Admin: 06/17/17 21:22 Dose: 20 mg Meropenem (Merrem Iv 1 Gm Premix) 50 mls @ 100 mls/hr IVPB Q12 [facility] PRN Reason: Protocol Stop: 06/22/17 22:01 Last Admin: 06/18/17 09:52 Dose: 100 mls/hr Insulin Detemir (Levemir) 10 unit SC HS [facility] Last Admin: 06/17/17 21:25 Dose: Not Given Insulin Human Lispro (Humalog Low) 0 units SC ACHS [facility] PRN Reason: Protocol Last Admin: 06/18/17 12:29 Dose: 4 units Lisinopril (Zestril) 2.5 mg PO DAILY [facility] Last Admin: 06/18/17 09:53 Dose: 2.5 mg Multivitamins/Minerals (Therapeutic-M Tab) 1 tab PO DAILY [facility] Last Admin: 04/24/18 09:53 Dose: 1 tab Mupirocin (Bactroban Ointment) 22 gm TOP BID [facility] Last Admin: 06/18/17 09:52 Dose: 1 applic Tramadol HCl (Ultram) 50 mg PO TID PRN PRN Reason: Pain, severe (8-10) - Labs Labs: 06/18/17 07:30 06/18/17 07:30 - Additional Findings Additional findings: - Constitutional Appears: Non-toxic, No Acute Distress - Head Exam Head Exam: ATRAUMATIC, NORMAL INSPECTION, NORMOCEPHALIC - Eye Exam Eye Exam: EOMI, Normal appearance, PERRL. absent: Conjunctival injection, Scleral icterus Pupil Exam: NORMAL ACCOMODATION, PERRL. absent: Irregular, Unequal - ENT Exam ENT Exam: Mucous Membranes Moist, Normal Exam - Neck Exam Neck exam: Positive for: Full Rom, Normal Inspection. Negative for: Lymphadenopathy, Thyromegaly - Respiratory Exam Respiratory Exam: Clear to Auscultation Bilateral, NORMAL BREATHING PATTERN. absent: Accessory Muscle Use, Chest Wall Tenderness, Decreased Breath Sounds, Rales, Rhonchi, Wheezes - Cardiovascular Exam Cardiovascular Exam: REGULAR RHYTHM, RRR, +S1, +S2. absent: Bradycardia, Tachycardia, Irregular Rhythm, JVD, +S4 - GI/Abdominal Exam GI & Abdominal Exam: Normal Bowel Sounds, Soft. absent: Diminished Bowel Sounds , Firm, Guarding, Hyperactive Bowel Sounds, Hypoactive Bowel Sounds, Rigid, Tenderness - Extremities Exam Extremities exam: Positive for: normal capillary refill, normal inspection, pedal pulses present. 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 She was determined to have urosepsis ESBL E. coli, managed on IV Merrem. She was transferred to [facility] for reconditioning while continuing IV abx. Today is IV Merrem day #14. Pending possible d/c tonight or tomorrow, depending on family's preference. Plan: 1) UTI -Sepsis secondary to UTI -Initial Criteria at [facility]: Febrile (Tmax 103F), WBC 13.5, 19 bands; afebrile today, wbcs 5.7 on admission to TCU -UA (06/03/17): 3+ LE, 4669 WBC, Many WBC clumps, moderate bacteria -Urine Culture (06/03/17): ESBL -B/C: E.coli. Sensitive to Merrem -Was on Merrem 500mg Q8H IV (started 06/05/17) to receive for 2 weeks, Benadryl 25 mg IV PRN Q8H for pruritus/rash following carbapenem administration; currently on Merrem 1g q12, today day #14, can be stopped after today as per ID -ID (Dr. Joaquin) consulted, appreciate all recs; can stop Merrem after today as today #14, course completed -Renal U/S normal findings at [facility] 2) Bacteremia -Positive blood cultures noted 06/04 for ESBL e.coli. Sensitive to Merrem. 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 Gomez) to confirm -Hgb stable, high 9's-10's since transfusion 2 units pRBCs at [facility] 06/04/17; 10.2 on admission to TCU; 9.9 yesterday, 9.1 today -EKG on admit - NSR, intervals unremarkable, no ST-T changes -Monitor temp. -As per Heme-onc at [facility], transfuse prn -no complaints consistent with anemia today 4) MDS -Following with Dr. Gomez (Heme-onc) for outpatient treatment -As per his last note at [facility], transfuse PRN 5) DM -Levemir 10 U SC HS, Lispro low ISS ACHS -Accuchecks ACHS 6) CAD -Aspirin 81 mg PO daily 7) HTN -continue Lisinopril Dispo: TCU, continuing IV Merrem for ESBL E coli (day 1414), undergoing strengthening, planned date of d/c tonight or tomorrow AM as per family's wishes FEN: Heart-healthy consistent carb Access: Peripheral IV Consults: ID Ppx: Pepcid for GI, SCDs for DVT Patient reviewed and discussed with attending, Dr. Mccoy. <Marlene Mccoy - Last Filed: 06/18/17 16:00> Objective - Vital Signs/Intake and Output Vital Signs (last 24 hours): Temp Pulse Resp BP Pulse Ox 97.4 F L 76 20 138/57 L 100 06/18/17 11:06 06/18/17 11:06 06/18/17 11:06 06/18/17 11:06 06/18/17 11:06 - Medications Medications: Current Medications Acetaminophen (Tylenol 325mg Tab) 650 mg PO Q6H PRN PRN Reason: Fever >100.4 F Aspirin (Aspirin Chewable) 81 mg PO DAILY [facility] Last Admin: 06/18/17 09:52 Dose: 81 mg Diphenhydramine HCl (Benadryl) 25 mg IVP Q8 PRN PRN Reason: Pruritis/Rash s/p Merrem admin Famotidine (Pepcid) 20 mg PO HS [facility] Last Admin: 06/17/17 21:22 Dose: 20 mg Meropenem (Merrem Iv 1 Gm Premix) 50 mls @ 100 mls/hr IVPB Q12 [facility] PRN Reason: Protocol Stop: 06/22/17 22:01 Last Admin: 06/18/17 09:52 Dose: 100 mls/hr Insulin Detemir (Levemir) 10 unit SC HS [facility] Last Admin: 06/17/17 21:25 Dose: Not Given Insulin Human Lispro (Humalog Low) 0 units SC ACHS [facility] PRN Reason: Protocol Last Admin: 06/18/17 12:29 Dose: 4 units Lisinopril (Zestril) 2.5 mg PO DAILY [facility] Last Admin: 06/18/17 09:53 Dose: 2.5 mg Multivitamins/Minerals (Therapeutic-M Tab) 1 tab PO DAILY [facility] Last Admin: 06/18/17 09:53 Dose: 1 tab Mupirocin (Bactroban Ointment) 22 gm TOP BID [facility] Last Admin: 06/18/17 09:52 Dose: 1 applic Tramadol HCl (Ultram) 50 mg PO TID PRN PRN Reason: Pain, severe (8-10) - Labs Labs: 06/18/17 07:30 06/18/17 07:30 Attending/Attestation - Attestation I have personally seen and examined this patient.: Yes I have fully participated in the care of the patient.: Yes I have reviewed all pertinent clinical information, including history, physical exam and plan: Yes Notes (Text): I have seen and examined the patient in TCU. Agree with the above note with the following additions/ exceptions: Briefly this is 87 year old female with history of DM-2 on insulin, HTN, MDS, dyslipidemia, chronic anemia due to MDS, dementia, and R proximal humerus fx (s/p sling, no surgery) who presented originally to [facility] with lethargy consistent with prior anemic episodes and foul-smelling urine. She was determined to have urosepsis ESBL E. coli, managed on IV Merrem. Patient denies any complaints. She is DNR, DNI. Patient lives with daughter at home. Home services will be arranged upon discharge. Upon discharge the patient will follow-up with [facility] clinic or PMD of choice.
[2017-06-18 17:13] VITALS: RESP 18; TEMP 98.3; O2SAT 99
[2017-06-18] MEDS: Insulin Detemir 100 units/ml Vial (Levemir) SC SCH (22:22)
--- NOTE | 2017-06-19 02:27 | PN ---
DATE: SUBJECTIVE: The patient is in bed, in no acute distress, nontoxic. PHYSICAL EXAMINATION: VITAL SIGNS: Temperature is 97, blood pressure is 130/50, respiratory rate of 22. HEENT: Unremarkable. NECK: Supple. LUNGS: Decreased breath sounds. HEART: Normal S1 and S2. ABDOMEN: Soft, nontender. LABORATORY DATA: Reveals the patient's white count is 5.4, hemoglobin of 9, platelets of 214. Chemistries are noted, BUN 36, creatinine of 1.1. Microbiology is noted. ASSESSMENT AND PLAN: This is an 87-year-old female, who was seen in room 315 earlier this morning with extended-spectrum beta-lactamase Escherichia coli bacteremia from urinary tract infection, history of sepsis and history of right skin structure, and on meropenem day #7, complete 10 to 14 days. We will follow with you. Jonathan Joaquin MD
[2017-06-19] MEDS ORDERED: Meropenem IV 1 gm in NS 50 ML IVPB SCH (06:00)
[2017-06-19] MEDS: Insulin Lispro (humaLOG) LOW Coverage SC SCH ×2 (06:29→11:30)
[2017-06-19] MEDS: Multivitamin With Minerals Tab PO SCH (10:05)
[2017-06-19 10:21] VITALS: BP 146/60; PULSE 80
--- NOTE | 2017-06-19 14:29 | CP.PCM.DIS ---
<Misael Waters - Last Filed: 06/19/17 14:23> Provider - Provider Date of Admission: 06/12/17 18:23 Attending physician: Marlene Mccoy MD Primary care physician: Mari Consults: ID: [id number] Time Spent in preparation of Discharge (in minutes): 35 Diagnosis - Discharge Diagnosis (1) Infection due to ESBL-producing Escherichia coli Status: Resolved Priority: High (2) Muscular deconditioning Status: Resolved Priority: Medium (3) Closed fracture of right proximal humerus Status: Chronic Priority: Medium Comment: sling only as per ortho, 4 wks ago (4) Myelodysplastic syndrome Status: Chronic Priority: High Hospital Course - Lab Results Lab Results: Most Recent Lab Values WBC 5.4 10^3/ul (4.5-11.0) 06/18/17 07:30 RBC 2.69 10^6/uL (3.5-6.1) L 06/18/17 07:30 Hgb 9.1 g/dL (12.0-16.0) L 06/18/17 07:30 Hct 26.7 % (36.0-48.0) L 06/18/17 07:30 MCV 99.3 fl (80.0-105.0) 06/18/17 07:30 MCH 33.8 pg (25.0-35.0) 06/18/17 07:30 MCHC 34.1 g/dl (31.0-37.0) 06/18/17 07:30 RDW 19.7 % (11.5-14.5) H 06/18/17 07:30 Plt Count 214 10^3/uL (120.0-450.0) 06/18/17 07:30 MPV 11.7 fl (7.0-11.0) H 06/18/17 07:30 Gran % 49.2 % (50.0-68.0) L 06/18/17 07:30 Lymph % (Auto) 34.0 % (22.0-35.0) 06/18/17 07:30 [place] % (Auto) 8.5 % (1.0-6.0) H 06/18/17 07:30 Eos % (Auto) 7.2 % (1.5-5.0) H 06/18/17 07:30 Baso % (Auto) 1.1 % (0.0-3.0) 06/18/17 07:30 Gran # 2.65 (1.4-6.5) 06/18/17 07:30 Lymph # (Auto) 1.8 (1.2-3.4) 06/18/17 07:30 [place] # (Auto) 0.5 (0.1-0.6) 06/18/17 07:30 Eos # (Auto) 0.4 (0.0-0.7) 06/18/17 07:30 Baso # (Auto) 0.06 K/mm3 (0.0-2.0) 06/18/17 07:30 Sodium 140 mmol/L (132-148) 06/18/17 07:30 Potassium 5.0 mmol/L (3.6-5.0) 06/18/17 07:30 Chloride 99 mmol/L (98-107) 06/18/17 07:30 Carbon Dioxide 31 mmol/L (21-33) 06/18/17 07:30 Anion Gap 15 (10-20) 06/18/17 07:30 BUN 36 mg/dL (7-21) H 06/18/17 07:30 Creatinine 1.1 mg/dl (0.7-1.2) 06/18/17 07:30 Est GFR ( Amer) 57 06/18/17 07:30 Est GFR (Non-Af Amer) 47 06/18/17 07:30 POC Glucose (mg/dL) 158 mg/dL (65-110) H 06/19/17 05:52 Random Glucose 198 mg/dL (70-110) H 06/18/17 07:30 Calcium 9.1 mg/dL (8.4-10.5) 06/18/17 07:30 Phosphorus 3.6 mg/dL (2.5-4.5) 06/18/17 07:30 Magnesium 2.4 mg/dL (1.7-2.2) H 06/18/17 07:30 Total Bilirubin 0.6 mg/dL (0.2-1.3) 06/13/17 06:45 AST 44 U/L (14-36) H 06/13/17 06:45 ALT 27 U/L (7-56) 06/13/17 06:45 Alkaline Phosphatase 88 U/L (38-126) 06/13/17 06:45 Total Protein 7.7 g/dL (5.8-8.3) 06/13/17 06:45 Albumin 3.9 g/dL (3.0-4.8) 06/13/17 06:45 Globulin 3.8 gm/dL 06/13/17 06:45 Albumin/Globulin Ratio 1.0 (1.1-1.8) L 06/13/17 06:45 - Hospital Course Hospital Course: This is an 87 yo F with PMH of DM-2 on insulin, HTN, MDS (possible leukemia?), Hypercholesterolemia, 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 She was determined to have urosepsis ESBL E. coli, managed on IV Merrem. She was determined to be medically stable, and was transferred to [facility] as per her PMD (Aditya) for rehab. While here, she finished out a course of IV Merrem (14 days total), and as per ID, not further antibiotics needed. Pt also reports participating in rehab well, back to her baseline. Now ready to go home , pending pickup by her daughter today. She was instructed to follow up with her PMD (Dr. Guerra) as well as her Heme-onc (Dr. Gomez) within 1 week of discharge. Pt expressed understanding and agreement, and then she was discharged to her daughter's home. Patient seen, reviewed, and discussed with attending, Dr. Mccoy. Discharge Exam - Additional Findings Additional findings: - Constitutional Appears: Non-toxic, No Acute Distress - Head Exam Head Exam: ATRAUMATIC, NORMAL INSPECTION, NORMOCEPHALIC - Eye Exam Eye Exam: EOMI, Normal appearance, PERRL. absent: Conjunctival injection, Scleral icterus Pupil Exam: NORMAL ACCOMODATION, PERRL. absent: Irregular, Unequal - ENT Exam ENT Exam: Mucous Membranes Moist, Normal Exam - Neck Exam Neck exam: Positive for: Full Rom, Normal Inspection. Negative for: Lymphadenopathy, Thyromegaly - Respiratory Exam Respiratory Exam: Clear to Auscultation Bilateral, NORMAL BREATHING PATTERN. absent: Accessory Muscle Use, Chest Wall Tenderness, Decreased Breath Sounds, Rales, Rhonchi, Wheezes - Cardiovascular Exam Cardiovascular Exam: REGULAR RHYTHM, RRR, +S1, +S2. absent: Bradycardia, Tachycardia, Irregular Rhythm, JVD, +S4 - GI/Abdominal Exam GI & Abdominal Exam: Normal Bowel Sounds, Soft. absent: Diminished Bowel Sounds , Firm, Guarding, Hyperactive Bowel Sounds, Hypoactive Bowel Sounds, Rigid, Tenderness - Extremities Exam Extremities exam: Positive for: normal capillary refill, normal inspection, pedal pulses present. Negative for: calf tenderness, pedal edema, tenderness - Neurological Exam awake and alert, moving all extremities spontaneously, following all commands appropriately - Psychiatric Exam Psychiatric exam: Normal Affect, Normal Mood - Skin Skin Exam: Dry, Intact, Normal Color, Warm Discharge Plan - Follow Up Plan Condition: GOOD Disposition: HOME/ ROUTINE Instructions: Preventing Falls in the Older Adult, Urinary Tract Infection, Adult (DC), Syncope (Fainting) (DC), Extended-Spectrum Beta Lactamase Infection Additional Instructions: Please resume all home medications as previously prescribed. Please follow up with your Primary medical doctor (Dr. Guerra) and your Technical Staff Engineer-Oncologist (Dr. Gomez) within 1 week of discharge. Please go to a hospital if you experience any worsening or concerning symptoms. Referrals: Asif Gomez MD [Staff Provider] - Jefferson Guerra MD [Staff Provider] - <Marlene Mccoy - Last Filed: 06/20/17 14:13> Provider - Provider Date of Admission: 06/12/17 18:23 Attending physician: Marlene Mccoy MD Hospital Course - Lab Results Lab Results: Most Recent Lab Values WBC 5.4 10^3/ul (4.5-11.0) 06/18/17 07:30 RBC 2.69 10^6/uL (3.5-6.1) L 06/18/17 07:30 Hgb 9.1 g/dL (12.0-16.0) L 06/18/17 07:30 Hct 26.7 % (36.0-48.0) L 06/18/17 07:30 MCV 99.3 fl (80.0-105.0) 06/18/17 07:30 MCH 33.8 pg (25.0-35.0) 06/18/17 07:30 MCHC 34.1 g/dl (31.0-37.0) 06/18/17 07:30 RDW 19.7 % (11.5-14.5) H 06/18/17 07:30 Plt Count 214 10^3/uL (120.0-450.0) 06/18/17 07:30 MPV 11.7 fl (7.0-11.0) H 06/18/17 07:30 Gran % 49.2 % (50.0-68.0) L 06/18/17 07:30 Lymph % (Auto) 34.0 % (22.0-35.0) 06/18/17 07:30 [place] % (Auto) 8.5 % (1.0-6.0) H 06/18/17 07:30 Eos % (Auto) 7.2 % (1.5-5.0) H 06/18/17 07:30 Baso % (Auto) 1.1 % (0.0-3.0) 06/18/17 07:30 Gran # 2.65 (1.4-6.5) 06/18/17 07:30 Lymph # (Auto) 1.8 (1.2-3.4) 06/18/17 07:30 [place] # (Auto) 0.5 (0.1-0.6) 06/18/17 07:30 Eos # (Auto) 0.4 (0.0-0.7) 06/18/17 07:30 Baso # (Auto) 0.06 K/mm3 (0.0-2.0) 06/18/17 07:30 Sodium 140 mmol/L (132-148) 06/18/17 07:30 Potassium 5.0 mmol/L (3.6-5.0) 06/18/17 07:30 Chloride 99 mmol/L (98-107) 06/18/17 07:30 Carbon Dioxide 31 mmol/L (21-33) 06/18/17 07:30 Anion Gap 15 (10-20) 06/18/17 07:30 BUN 36 mg/dL (7-21) H 06/18/17 07:30 Creatinine 1.1 mg/dl (0.7-1.2) 06/18/17 07:30 Est GFR ( Amer) 57 06/18/17 07:30 Est GFR (Non-Af Amer) 47 06/18/17 07:30 POC Glucose (mg/dL) 158 mg/dL (65-110) H 06/19/17 05:52 Random Glucose 198 mg/dL (70-110) H 06/18/17 07:30 Calcium 9.1 mg/dL (8.4-10.5) 06/18/17 07:30 Phosphorus 3.6 mg/dL (2.5-4.5) 06/18/17 07:30 Magnesium 2.4 mg/dL (1.7-2.2) H 06/18/17 07:30 Total Bilirubin 0.6 mg/dL (0.2-1.3) 06/13/17 06:45 AST 44 U/L (14-36) H 06/13/17 06:45 ALT 27 U/L (7-56) 06/13/17 06:45 Alkaline Phosphatase 88 U/L (38-126) 06/13/17 06:45 Total Protein 7.7 g/dL (5.8-8.3) 06/13/17 06:45 Albumin 3.9 g/dL (3.0-4.8) 06/13/17 06:45 Globulin 3.8 gm/dL 06/13/17 06:45 Albumin/Globulin Ratio 1.0 (1.1-1.8) L 06/13/17 06:45 Attending/Attestation - Attestation I have personally seen and examined this patient.: Yes I have fully participated in the care of the patient.: Yes I have reviewed all pertinent clinical information, including history, physical exam and plan: Yes Notes (Text): I have seen and examined the patient in TCU. Agree with the above note with the following additions/ exceptions: Briefly this is 87 year old female with history of DM-2 on insulin, HTN, MDS, dyslipidemia, chronic anemia due to MDS, dementia, and R proximal humerus fx (s/p sling, no surgery) who presented originally to [facility] with lethargy consistent with prior anemic episodes and foul-smelling urine. She was determined to have urosepsis ESBL E. coli and she completed IV Merrem. Patient denies any complaints. She is DNR, DNI. Patient lives with daughter at home. Home services will be arranged upon discharge. Upon discharge the patient will follow-up with [facility] clinic or PMD of choice.
== END 2017-06-19 11:58 | disposition home or self-care (01) | DRG 872 ==
LOC: TRCU 18:23
PROVIDERS: ADMIT Internal Medicine; ATTEND Hospitalist
PROC: F07Z9ZZ Gait Training/Functional Ambulation Treatment (ICD-10-PCS; principal; 2017-06-13)
PROC: F08Z4ZZ Home Management Treatment (ICD-10-PCS; 2017-06-13)
DX: A41.9 Sepsis, unspecified organism (principal); N39.0 Urinary tract infection, site not specified; Z79.2 Long term (current) use of antibiotics; Z16.12 Extended spectrum beta lactamase (ESBL) resistance; D46.9 Myelodysplastic syndrome, unspecified; D63.8 Anemia in other chronic diseases classified elsewhere; I10 Essential (primary) hypertension; E78.00 Pure hypercholesterolemia, unspecified; E11.9 Type 2 diabetes mellitus without complications; B96.20 Unspecified Escherichia coli [E. coli] as the cause of diseases classified elsewhere; I25.10 Atherosclerotic heart disease of native coronary artery without angina pectoris; F03.90 Unspecified dementia, unspecified severity, without behavioral disturbance, psychotic disturbance, mood disturbance, and anxiety; Z66 Do not resuscitate; Z87.891 Personal history of nicotine dependence; Z79.4 Long term (current) use of insulin; Z87.01 Personal history of pneumonia (recurrent); Z91.81 History of falling

== ENCOUNTER 2017-09-07 16:25 | Inpatient (IN) | payer MEDICARE, OTHER ==
[2017-09-07 19:07] LABS: BASO # 0.05 K/mm3 (0.0-2.0); BASO % 0.9 % (0.0-3.0); EOS # 0.2 (0.0-0.7); EOS % 3.7 % (1.5-5.0); GRAN # 3.89 (1.4-6.5); GRAN % 67.9 % (50.0-68.0); LYMPH # 1.3 (1.2-3.4); LYMPH % 22.3 % (22.0-35.0); MEAN CELL VOLUME 96.3 fl (80.0-105.0); MEAN CORPUSCULAR HEMOGLOBIN 33.5 pg (25.0-35.0); MEAN CORPUSCULAR HGB CONC 34.8 g/dl (31.0-37.0); MEAN PLATELET VOLUME 11.2 fl (7.0-11.0); MONO # 0.3 (0.1-0.6); MONO % 5.2 % (1.0-6.0); RBC 1.91 10^6/uL (3.5-6.1); RED CELL DISTRIBUTION WIDTH 22.2 % (11.5-14.5); WHITE BLOOD COUNT 5.7 10^3/ul (4.5-11.0)
--- NOTE | 2017-09-07 19:08 | ED PDOC ---
Arrival/HPI - General Chief Complaint: Back Pain Time Seen by Provider: 09/07/17 16:31 - History of Present Illness Narrative History of Present Illness (Text): 09/07/17 19:02 87 year old female with PMH of leukemia, anemia, diabetes, and dementia presets with right lower back/flank pain. Patient has had pain on and off for 2 months. patient also fell in [facility] one month ago and broke her shoulder. Patient went to see her PCP Dr. Calvin 5 days ago, who diagnosed her with a UTI and prescribed nitrafurantoin 100 mg for 5 days. Pain has not improved over the past 5 days. Patient's daughter called Dr. Calvin today who told her to bring the patient to the hospital and get an X ray. 09/07/17 20:49 Past Medical History - Provider Review Nursing Documentation Reviewed: Yes - Infectious Disease Hx of Infectious Diseases: None - Tetanus Immunization Tetanus Immunization: Unknown - Cardiac Hx Hypertension: Yes - Pulmonary Hx Bronchitis: Yes Hx Pneumonia: Yes - Neurological Hx Alzheimer's Disease: Yes Hx Dementia: Yes - HEENT Hx HEENT Disorder: Yes Hx Cataracts: Yes (BOTH EYES) - Renal Hx Renal Disorder: No - Endocrine/Metabolic Hx Endocrine Disorders: Yes Hx Diabetes Mellitus Type 2: Yes - Hematological/Oncological Hx Anemia: Yes Hx Leukemia: Yes - Integumentary Hx Dermatological Disorder: No - Musculoskeletal/Rheumatological Hx Arthritis: Yes Hx Rheumatoid Arthritis: Yes - Gastrointestinal Hx Gastrointestinal Disorders: No - Genitourinary/Gynecological Hx Genitourinary Disorders: Yes (esbl /uti sepsis,SOME INCONTINENCY.WEARS PULLUPS.) Hx Reproductive Disorders: No - Psychiatric Hx Psychophysiologic Disorder: No Hx Substance Use: No - Surgical History Hx Tonsillectomy: Yes - Anesthesia Hx Anesthesia: Yes Hx Anesthesia Reactions: No Hx Malignant Hyperthermia: No - Suicidal Assessment Feels Threatened In Home Enviroment: No Family/Social History - Physician Review Nursing Documentation Reviewed: Yes Family/Social History: Unknown Family HX Smoking Status: Former Smoker Hx Alcohol Use: No Hx Substance Use: No Allergies/Home Meds Allergies/Adverse Reactions: Allergies amoxicillin Allergy (Mild, Verified 09/07/17 17:00) RASH Home Medications: Home Meds Medication Instructions Recorded Confirmed Insulin Glargine,Hum.rec.anlog 10 units SC 07/14/18 07/14/18 [Basaglar Kwikpen U-100] Insulin Lispro [humALOG] 8 unit SC TID 09/07/17 09/07/17 Multivitamin [Multivitamins] 1 tab PO DAILY 09/07/17 09/07/17 Nitrofurantoin Macrocrystals 1 tab PO BID 09/07/17 09/07/17 [Macrobid] oxyCODONE/Acetaminophen [Percocet 1 tab PO Q4H PRN 09/07/17 09/07/17 5/325 mg Tab] Review of Systems - Physician Review All systems were reviewed & negative as marked: Yes - Review of Systems Constitutional: Normal Eyes: Normal ENT: Normal Respiratory: Normal Cardiovascular: Normal Gastrointestinal: Normal Musculoskeletal: Back Pain Skin: Normal Neurological: Normal Endocrine: Normal Physical Exam Vital Signs Temp Pulse Resp BP Pulse Ox 09/07/17 21:54 98.4 F 95 H 18 143/64 95 09/07/17 17:22 98.1 F 82 18 125/57 L 98 Temperature: Afebrile Blood Pressure: Normal Pulse: Regular Respiratory Rate: Normal Appearance: Positive for: Well-Appearing Pain Distress: Mild - Systems Exam Head: Present: Atraumatic Pupils: Present: PERRL Extroacular Muscles: Present: EOMI Mouth: Present: Moist Mucous Membranes Pharnyx: Present: Normal Neck: Present: Normal Range of Motion Respiratory/Chest: Present: Clear to Auscultation Cardiovascular: Present: Regular Rate and Rhythm Abdomen: Present: Normal Bowel Sounds Back: Present: Paraspinal Tenderness Upper Extremity: Present: Normal Inspection, Normal ROM, NORMAL PULSES Lower Extremity: Present: Normal Inspection, NORMAL PULSES, Normal ROM Neurological: Present: GCS=15, CN II-XII Intact, Speech Normal, Motor Func Grossly Intact, Normal Sensory Function Skin: Present: Warm, Dry, Normal Color Psychiatric: Present: Alert Medical Decision Making ED Course and Treatment: Impression: 87 year old Female presents with right sided back pain for 2 months on and off. Assessment: Back pain secondary to UTI Rule out fracture, spinal cord compression, spinal stenosis, osteoarthritis Plan: CBC: Hgb: 6.4 CMP: Mg: Spine X ray: UA/UC: negative leukocyte esterase and nitrites. 100+ glucose CXR: EKG: Normal sinus rhythm Vent rat: 81 IA: 174 QRS: 82 QT/QTc: 366/425 09/07/17 19:50 Hgb: 6.4. 1 Unit of PRBCs ordered. Patient will be admitted to the hospital. 09/07/17 19:51 - Lab Interpretations Lab Results: 09/07/17 18:46 09/07/17 18:46 Lab Results 09/07/17 19:45: PT 12.7 H, INR 1.11 H, APTT 24.9 L 09/07/17 19:31: POC Glucose (mg/dL) 125 H 09/07/17 19:20: Blood Type O POSITIVE, Antibody Screen Positive, Antibody Identification Inconclusive Panel, JESSIKA, Poly Interpret Negative, Crossmatch See Detail, BBK History Checked Patient has bt 09/07/17 18:46: Retic Count 1.01 09/07/17 18:46: Magnesium 2.3 H 09/07/17 18:46: Sodium 139, Potassium 5.0, Chloride 101, Carbon Dioxide 27, Anion Gap 15, BUN 31 H, Creatinine 1.0, Est GFR ( Amer) > 60, Est GFR ( Non-Af Amer) 52, Random Glucose 115 H, Calcium 9.3, Total Bilirubin 0.4, AST 28 , ALT 28, Alkaline Phosphatase 84, Total Protein 8.0, Albumin 4.3, Globulin 3.7 , Albumin/Globulin Ratio 1.1 09/07/17 18:46: Urine Color Yellow, Urine Appearance Clear, Urine pH 6.0, Ur Specific [place] 1.015, Urine Protein Negative, Urine Glucose (UA) 100 H, Urine Ketones Negative, Urine Blood Negative, Urine Nitrate Negative, Urine Bilirubin Negative, Urine Urobilinogen 0.2, Ur Leukocyte Esterase Negative 09/07/17 18:46: WBC 5.7, RBC 1.91 L, Hgb 6.4 L* D, Hct 18.4 L*, MCV 96.3 D, MCH 33.5, MCHC 34.8, RDW 22.2 H, Plt Count 203, MPV 11.2 H, Gran % 67.9, Lymph % (Auto) 22.3, [place] % (Auto) 5.2, Eos % (Auto) 3.7, Baso % (Auto) 0.9, Gran # 3.89, Lymph # (Auto) 1.3, [place] # (Auto) 0.3, Eos # (Auto) 0.2, Baso # (Auto) 0.05 - RAD Interpretation Radiology Orders: 09/07/17 18:42 CHEST PORTABLE [RAD] Stat 09/07/17 18:44 LS SPINE AP/LAT [RAD] Stat 09/07/17 20:58 SHOULDER RIGHT [RAD] Stat - Medication Orders Current Medication Orders: Discontinued Medications Aspirin (Aspirin Chewable) 81 mg PO DAILY [facility] Last Admin: 09/08/17 11:15 Dose: 81 mg Dextrose (Dextrose 50% Inj) 50 ml IV STAT PRN; Protocol PRN Reason: Hypoglycemia Protocol Enoxaparin Sodium (Lovenox) 30 mg SC DAILY [facility]ONICA PRN Reason: Protocol Last Admin: 09/08/17 11:15 Dose: Not Given Non-Admin Reason: Patient Refused Dextrose (Dextrose 5% In Water 1000 Ml) 1,000 mls @ 0 mls/hr IV .Q0M PRN; Protocol; Per Protocol PRN Reason: Hypoglycemia Protocol Insulin Human Regular (Humulin R Med) 0 units SC ACHS [facility] PRN Reason: Protocol Last Admin: 09/08/17 13:07 Dose: 5 units MAR Blood Glucose Document 09/08/17 13:07 (Rec: 09/08/17 13:08 [facility] [id number]) Blood Glucose Finger Stick Blood Glucose (70-120) 274 Subcutaneous Administrations Document 09/08/17 13:07 (Rec: 09/08/17 13:08 [facility] [id number]) Charges for Administration # of Subcutaneous Administrations 1 Lisinopril (Zestril) 2.5 mg PO DAILY [facility] Last Admin: 09/08/17 11:27 Dose: 2.5 mg Multivitamins (Thera Tab) 1 tab PO DAILY [facility] Last Admin: 09/08/17 11:27 Dose: 1 tab Oxycodone/Acetaminophen (Percocet 5/325 Mg Tab) 1 tab PO Q4H PRN PRN Reason: Pain, moderate (4-7) Stop: 09/10/17 22:00 Last Admin: 09/07/17 22:52 Dose: 1 tab MAR Pain Assessment Document 09/07/17 22:52 MB (Rec: 09/07/17 22:52 MB [facility] [id number]) Pain Reassessment Is this a pain reassessment? No Presence of Pain Presence of Pain Yes Pain Scale Used Pain Scale Used Numeric Location Left, Right or Bilateral Bilateral Upper or Lower Lower Pain Location Body Site Back Description Description Constant Intensity of Pain at present 5 Re-Assess: LYNSEY Pain Assessment Document 09/07/17 23:52 MB (Rec: 09/08/17 03:00 MB [facility] [id number]) Pain Reassessment Is this a pain reassessment? Yes Sleep Is patient sleeping during reassessment? Yes Pantoprazole Sodium (Protonix Ec Tab) 40 mg PO 0600 [facility] Last Admin: 09/08/17 05:25 Dose: 40 mg - PA / FLOUR MIXER / Resident Statement MD/DO has reviewed & agrees with the documentation as recorded. MD/DO has examined the patient and agrees with the treatment plan. Disposition/Present on Arrival - Present on Arrival Any Indicators Present on Arrival: No History of DVT/PE: No History of Uncontrolled Diabetes: No Urinary Catheter: No History of Decub. Ulcer: No History Surgical Site Infection Following: None - Disposition Have Diagnosis and Disposition been Completed?: Yes Diagnosis: Anemia Disposition: HOSPITALIZED Disposition Time: 20:54 Patient Plan: Admission Condition: GOOD
[2017-09-07 19:14] LABS: HEMOGLOBIN 6.4 g/dL (12.0-16.0)
[2017-09-07 19:24] LABS: ALB/GLOB RATIO 1.1 (1.1-1.8); ALBUMIN 4.3 g/dL (3.0-4.8); ALT/SGPT 28 U/L (7-56); AST/SGOT 28 U/L (14-36); BLOOD UREA NITROGEN 31 mg/dL (7-21); CALCIUM 9.3 mg/dL (8.4-10.5); GFR AFRICAN-AMERICAN > 60; GFR NON-AFRICAN AMERICAN 52
[2017-09-07 19:26] LABS: URINE BILIRUBIN NEGATIVE (NEGATIVE); URINE BLOOD NEGATIVE (NEGATIVE); URINE GLUCOSE (UA) 100 mg/dL (NEGATIVE); URINE LEUKOCYTE ESTERASE NEGATIVE Leu/uL (NEGATIVE); URINE PROTEIN NEGATIVE mg/dL (<30 mg/dL); URINE UROBILINOGEN 0.2 E.U./dL (<1 E.U./dL)
[2017-09-07 19:31] LABS: URINE APPEARANCE CLEAR (CLEAR); URINE COLOR YELLOW (YELLOW)
[2017-09-07 20:21] LABS: INR 1.11 (0.93-1.08); PARTIAL THROMBOPLASTIN TIME 24.9 Seconds (25.1-36.5); PROTHROMBIN TIME 12.7 SECONDS (9.4-12.5)
[2017-09-07] MEDS ORDERED: Dextrose 50% SYRINGE Inj (50 ml) IV PRN (21:32)
[2017-09-07] MEDS ORDERED: Oxycodone/Acetaminophen 5/325 mg Tab PO PRN (21:59)
[2017-09-07] MEDS: Insulin Reg-MEDIUM-Coverage SC SCH (22:19)
[2017-09-07 22:38] LABS: IRON 210 ug/dL (45-180)
--- NOTE | 2017-09-07 22:40 | CP.PCM.HP ---
<iDoni Wilson - Last Filed: 09/07/17 23:41> History of Present Illness - History of Present Illness History of Present Illness: Dioni Wilson DO, PGY-1 Hospitalist Admission History and Physical for Dr. Menjivar CC: R back/flank pain HPI: Ms. Jaimes is an 87 year old female with PMH of DM2, HTN, MDS (treated with chemotherapy, hx of 25 blood transfusions in the past, follows with Dr. 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 She describes the pain as a burning like sensation that started about a week ago and has been getting worse since. She went to her PMD and was positive for a UTI. She was prescribed Macrobid x 5 days. She has a history of R-sided fall at [facility] with R proximal humerus fx treated with sling only. Patient believes her pain may be related to her prior fall. Her daughter is concerned that she seems more demented than usual and requested additional evaluation. Her daughter states that she can tell when her mother becomes anemic and this was another reason she was brought in today. CBC in ED confirmed anemia and she was typed and crossed for two units. Patient endorses right back, flank, and some RLQ abdominal pain. Otherwise she denies fever, chills, chest pain, SOB, cough, nausea, vomiting, diarrhea, or other changes in bowel/bladder habits. She denies dysuria or increased frequency. PMH: DM2, HTN, MDS (treated with chemotherapy, hx of 25 blood transfusions in the past, follows with Dr. 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 Currently lives with her daughter Present on Admission - Present on Admission Any Indicators Present on Admission: No History of DVT/PE: No History of Uncontrolled Diabetes: No Urinary Catheter: No Decubitus Ulcer Present: No Review of Systems - Review of Systems Review of Systems: A 12 point ROS was reviewed with patient and negative except as stated in HPI Past Patient History - Infectious Disease Hx of Infectious Diseases: None - Tetanus Immunizations Tetanus Immunization: Unknown - Past Medical History & Family History Past Medical History?: Yes - Past Social History Smoking Status: Former Smoker - CARDIAC Hx Hypertension: Yes - PULMONARY Hx Bronchitis: Yes Hx Pneumonia: Yes - NEUROLOGICAL Hx Alzheimer's Disease: Yes Hx Dementia: Yes - HEENT Hx HEENT Problems: Yes Hx Cataracts: Yes (BOTH EYES) - RENAL Hx Chronic Kidney Disease: No - ENDOCRINE/METABOLIC Hx Endocrine Disorders: Yes Hx Diabetes Mellitus Type 2: Yes - HEMATOLOGICAL/ONCOLOGICAL Hx Anemia: Yes Hx Leukemia: Yes - INTEGUMENTARY Hx Dermatological Problems: No - MUSCULOSKELETAL/RHEUMATOLOGICAL Hx Arthritis: Yes Hx Rheumatoid Arthritis: Yes - GASTROINTESTINAL Hx Gastrointestinal Disorders: No - GENITOURINARY/GYNECOLOGICAL Hx Genitourinary Disorders: Yes (esbl /uti sepsis,SOME INCONTINENCY.WEARS PULLUPS.) Hx Reproductive Disorders: No - PSYCHIATRIC Hx Psychophysiologic Disorder: No Hx Substance Use: No - SURGICAL HISTORY Hx Tonsillectomy: Yes - ANESTHESIA Hx Anesthesia: Yes Hx Anesthesia Reactions: No Hx Malignant Hyperthermia: No Meds Allergies/Adverse Reactions: Allergies Allergy/AdvReac Type Severity Reaction Status Date / Time amoxicillin Allergy Mild RASH Verified 09/07/17 17:00 Physical Exam - Constitutional Additional comments: In general, Ms. Jaimes is pleasant, A/o x 3 but slightly disoriented - Head Exam Head Exam: ATRAUMATIC, NORMAL INSPECTION, NORMOCEPHALIC - Eye Exam Eye Exam: Normal appearance, PERRL - ENT Exam ENT Exam: Mucous Membranes Moist - Neck Exam Neck exam: Positive for: Normal Inspection. Negative for: Tenderness, Thyromegaly - Respiratory Exam Respiratory Exam: Clear to Auscultation Bilateral, NORMAL BREATHING PATTERN. absent: Accessory Muscle Use, Chest Wall Tenderness, Rales, Rhonchi, Wheezes - Cardiovascular Exam Cardiovascular Exam: REGULAR RHYTHM, RRR, +S1, +S2. absent: Diastolic murmur, Gallop, JVD, Rubs, Systolic Murmur - GI/Abdominal Exam GI & Abdominal Exam: Normal Bowel Sounds, Soft. absent: Guarding, Organomegaly , Rebound Additional comments: mild tenderness to palpation of RLQ - Back Exam Back exam: CVA tenderness (R), paraspinal tenderness - Neurological Exam Neurological exam: Alert, Oriented x3 - Psychiatric Exam Psychiatric exam: Normal Affect, Normal Mood - Skin Skin Exam: Dry, Intact, Normal Color, Warm Results - Vital Signs Recent Vital Signs: Last Vital Signs Temp 98.5 F 09/07/17 22:33 Pulse 85 09/07/17 22:33 Resp 19 09/07/17 22:33 BP 111/54 L 09/07/17 22:33 Pulse Ox 96 09/07/17 22:33 - Labs Result Diagrams: 09/07/17 18:46 09/07/17 18:46 Assessment & Plan - Assessment and Plan (Free Text) Assessment: ASSESSMENT: Ms. Jaimes is an 87 year old female with PMH of DM2, HTN, MDS ( treated with chemotherapy, follows with Dr. 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 PLAN: 1. Symptomatic normocytic anemia -Likely secondary to MDS -Patient has a history of 25 transfusions in the past -Type and cross completed in ED -Will receive 2 units -FOBT, iron studies, B12, folate ordered -Dr. Gomez of hematology/oncology, who she follows with, consulted 2. R flank pain -Likely secondary to musculoskeletal pain from prior fall -Less likely infectious etiology at this point as UA is unremarkable -Continue home pain medications 3. Hx of DM2 -ISS -Finger stick ACHS 4. Hx of HTN -Continue home lisinopril -Will adjust as needed DVT/GI PPX: Lovenox 40 sc, Protonix 40 Case and plan were reviewed in detail with attending Dr. Tiara Wilson, DO IM Resident PGY-1 <Debra Menjivar - Last Filed: 09/08/17 04:33> Results - Vital Signs Recent Vital Signs: Last Vital Signs Temp 98.2 F 09/08/17 04:13 Pulse 75 09/08/17 04:13 Resp 18 09/08/17 04:13 BP 123/65 09/08/17 04:13 Pulse Ox 96 09/07/17 22:33 - Labs Result Diagrams: 09/07/17 18:46 09/07/17 18:46 Labs: Laboratory Results - last 24 hr 09/07/17 09/07/17 22:11 22:11 Phosphorus 3.6 Iron 210 H TIBC 222 L % Saturation 95 H Attending/Attestation - Attestation I have personally seen and examined this patient.: Yes I have fully participated in the care of the patient.: Yes I have reviewed all pertinent clinical information: Yes Notes (Text): 09/08/17 04:31 Patient was seen when she was in bed # 14 in the ER. Agree with history, physical examination, assessment and plan.
[2017-09-07 22:47] LABS: % IRON SATURATION 95 % (20-55); TOTAL IRON BINDING CAPACITY 222 ug/dL (265-497)
[2017-09-08 02:03] VITALS: BMI 23.8
[2017-09-08] MEDS ORDERED: Pantoprazole 40 mg EC Tab PO SCH (06:00)
[2017-09-08 08:02] LABS: ALBUMIN 3.9 g/dL (3.0-4.8); ALT/SGPT 22 U/L (7-56); AST/SGOT 27 U/L (14-36); BLOOD UREA NITROGEN 28 mg/dL (7-21); CALCIUM 8.7 mg/dL (8.4-10.5); GFR AFRICAN-AMERICAN > 60; GFR NON-AFRICAN AMERICAN 52; HDL CHOLESTEROL 45 mg/dL (29-60)
[2017-09-08 08:04] LABS: LDL CHOLESTEROL 68 mg/dL (0-129)
[2017-09-08 08:06] LABS: BASO # 0.04 K/mm3 (0.0-2.0); BASO % 0.6 % (0.0-3.0); EOS # 0.3 (0.0-0.7); EOS % 3.7 % (1.5-5.0); GRAN # 5.04 (1.4-6.5); GRAN % 74.9 % (50.0-68.0); HEMOGLOBIN 8.5 g/dL (12.0-16.0); LYMPH # 1.1 (1.2-3.4); LYMPH % 16.8 % (22.0-35.0); MEAN CELL VOLUME 96.4 fl (80.0-105.0); MEAN CORPUSCULAR HEMOGLOBIN 33.9 pg (25.0-35.0); MEAN CORPUSCULAR HGB CONC 35.1 g/dl (31.0-37.0); MONO # 0.3 (0.1-0.6); RBC 2.51 10^6/uL (3.5-6.1); RED CELL DISTRIBUTION WIDTH 19.8 % (11.5-14.5); WHITE BLOOD COUNT 6.7 10^3/ul (4.5-11.0)
[2017-09-08 08:12] VITALS: RESP 20; TEMP 98
[2017-09-08] MEDS: Insulin Reg-MEDIUM-Coverage SC SCH ×2 (08:39→13:07)
--- NOTE | 2017-09-08 08:56 | RAD ---
Date of service: 09/07/2017 HISTORY: r/o infiltrate COMPARISON: No prior. FINDINGS: LUNGS: No active pulmonary disease. PLEURA: No significant pleural effusion identified, no pneumothorax apparent. CARDIOVASCULAR: Normal. OSSEOUS STRUCTURES: No significant abnormalities. VISUALIZED UPPER ABDOMEN: Normal. OTHER FINDINGS: Right-sided internal jugular line IMPRESSION: No active disease.
[2017-09-08] MEDS ORDERED: Enoxaparin 30 mg Syringe SC SCH (10:00)
[2017-09-08] MEDS ORDERED: Multivitamin Therapeutic Tab PO SCH (10:00)
--- NOTE | 2017-09-08 12:28 | RAD ---
Date of service: 09/07/2017 PROCEDURE: Radiographs of the Lumbar Spine. HISTORY: Back Pain COMPARISON: No prior. FINDINGS: BONES: Normal alignment. No listhesis. No fracture. DISC SPACES: Unremarkable. OTHER FINDINGS: None. IMPRESSION: Unremarkable radiographs of the lumbar spine.
--- NOTE | 2017-09-08 12:31 | RAD ---
Date of service: 09/07/2017 PROCEDURE: Radiographs of the right Shoulder HISTORY: Evaluation of fracture of right shoulder COMPARISON: No prior. FINDINGS: BONES: There is an impacted transverse fracture of the humeral neck. JOINTS: Normal. Glenohumeral and acromioclavicular joints preserved. No osteoarthritis. SOFT TISSUES: Normal. OTHER FINDINGS: None. IMPRESSION: There is an impacted transverse fracture of the humeral neck.
[2017-09-08 12:53] LABS: FOLATE > 20.0 ng/mL
--- NOTE | 2017-09-08 14:40 | CP.PCM.DIS ---
Provider - Provider Date of Admission: 09/07/17 21:15 Attending physician: Lynn De Guzman MD Primary care physician: Jefferson Guerra MD Time Spent in preparation of Discharge (in minutes): 45 Diagnosis - Discharge Diagnosis (1) Anemia Status: Chronic Priority: Medium (2) UTI (urinary tract infection) Status: Resolved Priority: Medium (3) Myelodysplastic syndrome Status: Chronic Priority: Medium (4) Diabetes mellitus Status: Chronic Priority: Medium (5) Hypertension Status: Chronic Priority: Medium (6) Dementia Status: Chronic Priority: Medium Hospital Course - Lab Results Lab Results: Most Recent Lab Values WBC 6.7 10^3/ul (4.5-11.0) 09/08/17 08:00 RBC 2.51 10^6/uL (3.5-6.1) L 09/08/17 08:00 Hgb 8.5 g/dL (12.0-16.0) L D 09/08/17 08:00 Hct 24.2 % (36.0-48.0) L 09/08/17 08:00 MCV 96.4 fl (80.0-105.0) 09/08/17 08:00 MCH 33.9 pg (25.0-35.0) 09/08/17 08:00 MCHC 35.1 g/dl (31.0-37.0) 09/08/17 08:00 RDW 19.8 % (11.5-14.5) H 09/08/17 08:00 Plt Count 194 10^3/uL (120.0-450.0) 09/08/17 08:00 MPV 11.0 fl (7.0-11.0) 09/08/17 08:00 Gran % 74.9 % (50.0-68.0) H 09/08/17 08:00 Lymph % (Auto) 16.8 % (22.0-35.0) L 09/08/17 08:00 [place] % (Auto) 4.0 % (1.0-6.0) 09/08/17 08:00 Eos % (Auto) 3.7 % (1.5-5.0) 09/08/17 08:00 Baso % (Auto) 0.6 % (0.0-3.0) 09/08/17 08:00 Gran # 5.04 (1.4-6.5) 09/08/17 08:00 Lymph # (Auto) 1.1 (1.2-3.4) L 09/08/17 08:00 [place] # (Auto) 0.3 (0.1-0.6) 09/08/17 08:00 Eos # (Auto) 0.3 (0.0-0.7) 09/08/17 08:00 Baso # (Auto) 0.04 K/mm3 (0.0-2.0) 09/08/17 08:00 Retic Count 1.01 % (0.5-1.5) 09/07/17 18:46 PT 12.7 SECONDS (9.4-12.5) H 09/07/17 19:45 INR 1.11 (0.93-1.08) H 09/07/17 19:45 APTT 24.9 Seconds (25.1-36.5) L 09/07/17 19:45 Sodium 139 mmol/L (132-148) 09/08/17 07:00 Potassium 4.7 mmol/L (3.6-5.0) 09/08/17 07:00 Chloride 103 mmol/L (98-107) 09/08/17 07:00 Carbon Dioxide 25 mmol/L (21-33) 09/08/17 07:00 Anion Gap 16 (10-20) 09/08/17 07:00 BUN 28 mg/dL (7-21) H 09/08/17 07:00 Creatinine 1.0 mg/dl (0.7-1.2) 09/08/17 07:00 Est GFR ( Amer) > 60 09/08/17 07:00 Est GFR (Non-Af Amer) 52 09/08/17 07:00 POC Glucose (mg/dL) 274 mg/dL (65-110) H 09/08/17 11:19 Random Glucose 156 mg/dL (70-110) H 09/08/17 07:00 Hemoglobin A1c 6.6 % (4.2-6.5) H 09/08/17 07:00 Calcium 8.7 mg/dL (8.4-10.5) 09/08/17 07:00 Phosphorus 3.6 mg/dL (2.5-4.5) 09/07/17 22:11 Magnesium 2.1 mg/dL (1.7-2.2) 09/08/17 07:00 Iron 210 ug/dL (45-180) H 09/07/17 22:11 TIBC 222 ug/dL (265-497) L 09/07/17 22:11 % Saturation 95 % (20-55) H 09/07/17 22:11 Transferrin 157.44 mg/dL (206-381) L 09/07/17 22:11 Ferritin 1160.0 ng/mL 09/07/17 22:11 Total Bilirubin 1.1 mg/dL (0.2-1.3) 09/08/17 07:00 AST 27 U/L (14-36) 09/08/17 07:00 ALT 22 U/L (7-56) 09/08/17 07:00 Alkaline Phosphatase 73 U/L (38-126) 09/08/17 07:00 Total Protein 7.6 g/dL (5.8-8.3) 09/08/17 07:00 Albumin 3.9 g/dL (3.0-4.8) 09/08/17 07:00 Globulin 3.7 gm/dL 09/08/17 07:00 Albumin/Globulin Ratio 1.0 (1.1-1.8) L 09/08/17 07:00 Triglycerides 83 mg/dL (35-160) 09/08/17 07:00 Cholesterol 133 mg/dL (130-200) 09/08/17 07:00 LDL Cholesterol Direct 68 mg/dL (0-129) 09/08/17 07:00 HDL Cholesterol 45 mg/dL (29-60) 09/08/17 07:00 Vitamin B12 517 pg/mL (239-931) 09/07/17 22:11 Folate > 20.0 ng/mL 09/07/17 22:11 TSH 3rd Generation 1.53 mIU/mL (0.46-4.68) 09/08/17 07:00 Urine Color Yellow (YELLOW) 09/07/17 18:46 Urine Appearance Clear (CLEAR) 09/07/17 18:46 Urine pH 6.0 (4.7-8.0) 09/07/17 18:46 Ur Specific [place] 1.015 (1.005-1.035) 09/07/17 18:46 Urine Protein Negative mg/dL (<30 mg/dL) 09/07/17 18:46 Urine Glucose (UA) 100 mg/dL (NEGATIVE) H 09/07/17 18:46 Urine Ketones Negative mg/dL (NEGATIVE) 09/07/17 18:46 Urine Blood Negative (NEGATIVE) 09/07/17 18:46 Urine Nitrate Negative (NEGATIVE) 09/07/17 18:46 Urine Bilirubin Negative (NEGATIVE) 09/07/17 18:46 Urine Urobilinogen 0.2 E.U./dL (<1 E.U./dL) 09/07/17 18:46 Ur Leukocyte Esterase Negative Debby/uL (NEGATIVE) 09/07/17 18:46 Blood Type O POSITIVE 09/07/17 19:20 Antibody Screen Positive 09/07/17 19:20 Crossmatch See Detail 09/07/17 19:20 BBK History Checked Patient has bt 09/07/17 19:20 - Hospital Course Hospital Course: Ms. 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 Patient was admitted and was found to have a Hb of 6.4. She was then given 1 bag of RBC transfusion and monitored overnight. She was also treated with insulin, aspirin, lovenox, protonix, multivitamin, and lisinopril. During the course of his hospital stay, she underwent EKG, chest xray, lumbar spine xray, and shoulder xray. EKG showed normal sinus rhythm at 81 bpm, no ST elevations or depressions, chest xray showed no active disease, lumbar spine xray showed unremarkable result, and shoulder xray showed impacted transverse fracture of the humeral neck which was unchanged from previous studies. Patient instructed to continue with home medications: aspirin, insulin glargine, insulin lispro, lisinopril, and multivitamins. She was educated on the correct way to take medications and was told to follow up with his primary care doctor within 1 week of discharge. She was also instructed resume activities safely and as tolerated, also to continue a low sodium diet at home. Patient further informed to return to the ED for worsening of symptoms.Patient is now medically optimized for discharge. Discharge Exam - Head Exam Head Exam: ATRAUMATIC, NORMAL INSPECTION - Eye Exam Eye Exam: Normal appearance - ENT Exam ENT Exam: Mucous Membranes Moist - Respiratory Exam Respiratory Exam: Clear to PA & Lateral. absent: Rales, Rhonchi, Wheezes - Cardiovascular Exam Cardiovascular Exam: REGULAR RHYTHM, +S1, +S2. absent: Gallop, Rubs, Systolic Murmur - GI/Abdominal Exam GI & Abdominal Exam: Normal Bowel Sounds, Soft. absent: Tenderness - Extremities Exam Additional comments: no calf tenderness or pedal edema - Neurological Exam Neurological exam: Alert, Oriented x3 - Psychiatric Exam Psychiatric exam: Normal Affect, Normal Mood - Skin Skin Exam: Dry, Normal Color, Warm Discharge Plan - Follow Up Plan Condition: GOOD Disposition: HOME/ ROUTINE Instructions: Blood Transfusion , Good Food Sources of Iron, Anemia Caused by Low Iron, Adult (DC) Additional Instructions: 1. Follow up with primary doctor in 3-5 days 2. Resume home medications as per discharge instructions 3. Resume activity as tolerated 4. Apply warm compress for back pain 5. Resume low salt diet at home 5. Return to Emergency room if symptoms return Referrals: Eulogio Gomez MD [Staff Provider] - Jefferson Guerra MD [Primary Care Provider] -
--- NOTE | 2017-09-08 17:10 | CARD ---
APPROVED REPORT Date of service: 09/07/2017 EKG Measurement Heart [id number] <Conclusion> Normal sinus rhythm T wave abnormality, consider lateral ischemia Abnormal ECG
[2017-09-08 17:19] VITALS: BP 130/70; PULSE 82; O2SAT 95
== END 2017-09-08 17:19 | disposition home or self-care (01) | DRG 812 ==
LOC: ED 16:25 → ERH 21:15 → 5RSO 22:36
PROVIDERS: ADMIT Internal Medicine; ATTEND Internal Medicine
PROC: 30233N1 Transfusion of Nonautologous Red Blood Cells into Peripheral Vein, Percutaneous Approach (ICD-10-PCS; principal; 2017-09-08)
DX: D46.9 Myelodysplastic syndrome, unspecified (principal); N39.0 Urinary tract infection, site not specified; D63.8 Anemia in other chronic diseases classified elsewhere; E11.9 Type 2 diabetes mellitus without complications; I10 Essential (primary) hypertension; E78.5 Hyperlipidemia, unspecified; F02.80 Dementia in other diseases classified elsewhere, unspecified severity, without behavioral disturbance, psychotic disturbance, mood disturbance, and anxiety; G30.9 Alzheimer's disease, unspecified; Z85.6 Personal history of leukemia; Z92.21 Personal history of antineoplastic chemotherapy; Z87.891 Personal history of nicotine dependence

== ENCOUNTER 2017-10-04 14:54 | Inpatient (IN) | payer MEDICARE, OTHER ==
[2017-10-04 14:55] VITALS: BMI 23.8
--- NOTE | 2017-10-04 15:35 | ED PDOC ---
Arrival/HPI - General Chief Complaint: Weakness/Neurological Deficit Time Seen by Provider: 10/04/17 14:55 Historian: Patient, Family (daughter) - History of Present Illness Narrative History of Present Illness (Text): 10/04/17 15:35 87 year old female with PMH of leukemia, anemia, diabetes, and dementia presents with daughter for generalized weakness, and urinary frequency since yesterday. Daughter thinks patient has severe anemia, since last time patient Hg was low. Daughter denies other complains. Time/Duration: Other (see hpi) Context: Home Past Medical History - Provider Review Nursing Documentation Reviewed: Yes - Infectious Disease Hx of Infectious Diseases: None - Tetanus Immunization Tetanus Immunization: Unknown - Reproductive Menopause: Yes - Cardiac Hx Hypertension: Yes - Pulmonary Hx Bronchitis: Yes Hx Pneumonia: Yes - Neurological Hx Alzheimer's Disease: Yes Hx Dementia: Yes - HEENT Hx HEENT Disorder: Yes Hx Cataracts: Yes (BOTH EYES) - Renal Hx Renal Disorder: No - Endocrine/Metabolic Hx Endocrine Disorders: Yes Hx Diabetes Mellitus Type 2: Yes - Hematological/Oncological Hx Anemia: Yes Hx Leukemia: Yes - Integumentary Hx Dermatological Disorder: No - Musculoskeletal/Rheumatological Hx Arthritis: Yes Hx Rheumatoid Arthritis: Yes - Gastrointestinal Hx Gastrointestinal Disorders: No - Genitourinary/Gynecological Hx Genitourinary Disorders: Yes (esbl /uti sepsis,SOME INCONTINENCY.WEARS PULLUPS.) Hx Reproductive Disorders: No - Psychiatric Hx Psychophysiologic Disorder: No Hx Substance Use: No - Surgical History Hx Tonsillectomy: Yes Other/Comment: right port a cath - Anesthesia Hx Anesthesia: Yes Hx Anesthesia Reactions: No Hx Malignant Hyperthermia: No - Suicidal Assessment Feels Threatened In Home Enviroment: No Family/Social History - Physician Review Nursing Documentation Reviewed: Yes Family/Social History: Other (noncontributory) Smoking Status: Former Smoker Hx Alcohol Use: No Hx Substance Use: No Allergies/Home Meds Allergies/Adverse Reactions: Allergies amoxicillin Allergy (Mild, Verified 09/07/17 17:00) RASH Home Medications: Home Meds Medication Instructions Recorded Confirmed Insulin Glargine,Hum.rec.anlog 10 units SC HS 09/07/17 09/07/17 [Basaglar Kwikpen U-100] Insulin Lispro [humALOG] 8 unit SC TID 09/07/17 09/07/17 Multivitamin [Multivitamins] 1 tab PO DAILY 09/07/17 09/07/17 Nitrofurantoin Macrocrystals 1 tab PO BID 09/07/17 09/07/17 [Macrobid] oxyCODONE/Acetaminophen [Percocet 1 tab PO Q4H PRN 09/07/17 09/07/17 5/325 mg Tab] Review of Systems - Review of Systems Constitutional: Fatigue. absent: Weight Change, Fevers, Night Sweats Eyes: Normal. absent: Vision Changes, Photophobia ENT: Normal Respiratory: Normal. absent: SOB, Cough Cardiovascular: Normal. absent: Chest Pain, Palpitations Gastrointestinal: Normal. absent: Abdominal Pain, Nausea, Vomiting Genitourinary Female: Frequency. absent: Dysuria, Hematuria, Vaginal Bleeding, Vaginal Discharge Musculoskeletal: Back Pain. absent: Neck Pain Skin: Normal. absent: Rash Neurological: Dizziness. absent: Headache, Focal Weakness, Gait Changes, Speech Changes, Facial Droop, Disequilibrium, Seizure Endocrine: Normal Hemo/Lymphatic: Normal Psychiatric: Normal Physical Exam Vital Signs Temp Pulse Resp BP Pulse Ox 10/04/17 17:11 98 H 17 144/68 93 L 10/04/17 15:04 98.2 F 90 18 131/52 L 98 Temperature: Afebrile Blood Pressure: Normal Pulse: Regular Respiratory Rate: Normal Appearance: Positive for: Well-Appearing, Non-Toxic, Comfortable Pain Distress: None - Systems Exam Head: Present: Atraumatic, Normocephalic Pupils: Present: PERRL Extroacular Muscles: Present: EOMI Conjunctiva: Present: Normal Mouth: Present: Moist Mucous Membranes Neck: Present: Normal Range of Motion Respiratory/Chest: Present: Clear to Auscultation, Good Air Exchange. No: Respiratory Distress, Accessory Muscle Use Cardiovascular: Present: Regular Rate and Rhythm, Normal S1, S2. No: Murmurs Abdomen: No: Tenderness, Distention, Peritoneal Signs Back: Present: Normal Inspection Upper Extremity: Present: Normal Inspection. No: Cyanosis, Edema Lower Extremity: Present: Normal Inspection. No: Edema Neurological: Present: GCS=15, CN II-XII Intact, Speech Normal Skin: Present: Warm, Dry, Normal Color. No: Rashes Psychiatric: Present: Alert, Normal Insight, Normal Concentration Medical Decision Making ED Course and Treatment: 10/04/17 16:[address] Thorpe regarding Hg 5.2, and UTI. She stated she is in a meeting, but she would let the other doctor know about this case. 10/04/17 17:10 Dr. Hyatt came to examined patient. Patient and daughter agreed with plan for admission. Blood transfusion was ordered, and patient and daughter agreed with blood transfusion. Re-evaluation Time: 17:50 Reassessment Condition: Re-examined, Improving,but remains with symptoms - Lab Interpretations Lab Results: 10/04/17 15:00 10/04/17 15:00 Lab Results 10/04/17 16:00: Urine Color Yellow, Urine Appearance Slight-cloudy, Urine pH 6.0 , Ur Specific [place] 1.015, Urine Protein Negative, Urine Glucose (UA) Negative , Urine Ketones Negative, Urine Blood Negative, Urine Nitrate Negative, Urine Bilirubin Negative, Urine Urobilinogen 0.2, Ur Leukocyte Esterase Moderate H, Urine RBC Negative, Urine WBC 0 - 2, Ur Epithelial Cells 0 - 2, Urine Bacteria Neg 10/04/17 16:00: pO2 129 H, VBG pH 7.38, VBG pCO2 43.0, VBG HCO3 25.4, VBG Total CO2 26.7, VBG O2 Sat (Calc) 100.6 H, VBG Base Excess 0.0, VBG Potassium 4.6, Glucose 225 H, Lactate 2.0, FiO2 21.0, Sodium 136.0, Chloride 105.0, Venous Blood Potassium 4.6 10/04/17 15:00: Blood Type O POSITIVE, Antibody Screen Positive, Antibody Identification Pending, Crossmatch See Detail, BBK History Checked Patient has bt 10/04/17 15:00: Sodium 136, Potassium 4.4, Chloride 101, Carbon Dioxide 25, Anion Gap 15, BUN 30 H, Creatinine 1.3 H, Est GFR ( Amer) 47, Est GFR ( Non-Af Amer) 39, Random Glucose 184 H, Calcium 9.3, Magnesium 2.2, Lactate Dehydrogenase 446, Total Creatine Kinase 25 L, Troponin I < 0.01 D, NT-Pro-B Natriuret Pep 307 10/04/17 15:00: PT 13.6 H, INR 1.19, APTT 22.8 L 10/04/17 15:00: WBC 5.3 D, RBC 1.50 L, Hgb 5.2 L* D, Hct 15.3 L*, MCV 102.0 D , MCH 34.7, MCHC 34.0, RDW 23.5 H, Plt Count 248, MPV 11.0, Gran % 63.2, Lymph % (Auto) 26.4, [place] % (Auto) 5.1, Eos % (Auto) 4.7, Baso % (Auto) 0.6, Gran # 3.36, Lymph # (Auto) 1.4, [place] # (Auto) 0.3, Eos # (Auto) 0.3, Baso # (Auto) 0.03 I have reviewed the lab results: Yes Interpretation: Abnormal lab values - RAD Interpretation Narrative RAD Interpretations (Text): 10/04/17 17:51 CXR: NAD Radiology Orders: 10/04/17 15:36 CHEST PORTABLE [RAD] Stat 10/04/17 16:26 ABDOMEN & PELVIS [ABD & PELVIS W/O PO OR IV CONT] [CT] Stat - EKG Interpretation Interpreted by ED Physician: Yes (NSR @ 88 bpm. T-wave inversion on 1, 2, v4, v5, v6) Type: 12 lead EKG Comparison: Similar to previous EKG - Medication Orders Current Medication Orders: Ciprofloxacin (Cipro 400mg/200ml Dsw) 400 mg in 200 mls @ 133.3 mls/hr IVPB STAT STA PRN Reason: Protocol Stop: 10/04/17 17:54 Last Admin: 10/04/17 16:52 Dose: 133.3 mls/hr eMAR Start Stop Document 10/04/17 16:52 SRE (Rec: 10/04/17 16:53 SRE [id number]) Intravenous Solution Start Date 10/04/17 Start Time 16:52 End Date 10/04/17 End time 18:30 Total Infusion Time 98 Discontinued Medications Acetaminophen (Tylenol 325mg Tab) 650 mg PO STAT STA Stop: 10/04/17 16:35 Last Admin: 10/04/17 16:50 Dose: 650 mg MAR Pain/Vitals Document 10/04/17 16:50 SRE (Rec: 10/04/17 16:52 SRE [id number]) Pain Reassessment Is This A Pain ReAssessment? Yes Sleep Is patient sleeping during reassessment? No Presence of Pain Presence of Pain Yes Pain Scale Used Pain Scale Used Numeric Location Pain Location Body Site Back Description Intermittent Disposition/Present on Arrival - Present on Arrival Any Indicators Present on Arrival: No History of DVT/PE: No History of Uncontrolled Diabetes: No Urinary Catheter: No History of Decub. Ulcer: No History Surgical Site Infection Following: None - Disposition Have Diagnosis and Disposition been Completed?: Yes Diagnosis: Signs and symptoms of anemia, Generalized weakness, UTI (urinary tract infection) Disposition: HOSPITALIZED Disposition Time: 17:52 Patient Plan: Admission Patient Problems: Current Active Problems Problem Status Onset Generalized weakness Acute Signs and symptoms of anemia Acute UTI (urinary tract infection) Acute Condition: STABLE Discharge Instructions (ExitCare): Weakness (ED) Forms: [employer] (Italian)
[2017-10-04 15:56] LABS: BASO # 0.03 K/mm3 (0.0-2.0); BASO % 0.6 % (0.0-3.0); EOS # 0.3 (0.0-0.7); EOS % 4.7 % (1.5-5.0); GRAN # 3.36 (1.4-6.5); GRAN % 63.2 % (50.0-68.0); LYMPH # 1.4 (1.2-3.4); LYMPH % 26.4 % (22.0-35.0); MEAN CORPUSCULAR HEMOGLOBIN 34.7 pg (25.0-35.0); MONO # 0.3 (0.1-0.6); MONO % 5.1 % (1.0-6.0); RBC 1.5 10^6/uL (3.5-6.1); RED CELL DISTRIBUTION WIDTH 23.5 % (11.5-14.5); WHITE BLOOD COUNT 5.3 10^3/ul (4.5-11.0)
[2017-10-04 16:02] LABS: HEMOGLOBIN 5.2 g/dL (12.0-16.0)
[2017-10-04 16:05] LABS: INR 1.19; PARTIAL THROMBOPLASTIN TIME 22.8 Seconds (25.1-36.5); PROTHROMBIN TIME 13.6 SECONDS (9.4-12.5)
[2017-10-04 16:15] LABS: URINE BILIRUBIN NEGATIVE (NEGATIVE); URINE BLOOD NEGATIVE (NEGATIVE); URINE GLUCOSE (UA) NEGATIVE (NEGATIVE); URINE LEUKOCYTE ESTERASE MODERATE Leu/uL (NEGATIVE); URINE PROTEIN NEGATIVE mg/dL (<30 mg/dL); URINE UROBILINOGEN 0.2 E.U./dL (<1 E.U./dL)
[2017-10-04 16:16] LABS: URINE APPEARANCE SLIGHT-CLOUDY (CLEAR); URINE COLOR YELLOW (YELLOW)
[2017-10-04 16:17] LABS: BLOOD UREA NITROGEN 30 mg/dL (7-21); CALCIUM 9.3 mg/dL (8.4-10.5); GFR AFRICAN-AMERICAN 47; GFR NON-AFRICAN AMERICAN 39
[2017-10-04 16:18] LABS: VENOUS BLOOD GAS PO2 129 mm/Hg (30-55); VENOUS BLOOD PH 7.38 (7.32-7.43)
[2017-10-04 16:19] LABS: URINE EPITHELIAL CELLS 0 - 2 /hpf (0-5); URINE RBC NEGATIVE /hpf (0-2); URINE WBC 0 - 2 /hpf (0-6)
[2017-10-04 16:20] LABS: URINE BACTERIA NEG (NEG)
[2017-10-04] MEDS ORDERED: Ciprofloxacin 400mg/200ml D5W 400 MG/200 ML BAG IVPB STA (16:24)
[2017-10-04 16:29] LABS: B-TYPE NATRIURETIC PEPTIDE 307 pg/mL (0-450); TROPONIN I < 0.01 ng/mL
--- NOTE | 2017-10-04 17:18 | RAD ---
Date of service: 10/04/2017 HISTORY: Anemia, dizziness. COMPARISON: 09/07/2017 FINDINGS: LUNGS: No active pulmonary disease. PLEURA: No significant pleural effusion identified, no pneumothorax apparent. CARDIOVASCULAR: No radiographic findings to suggest acute or significant cardiovascular disease. Venous access catheter in stable, satisfactory position. OSSEOUS STRUCTURES: No significant abnormalities. VISUALIZED UPPER ABDOMEN: Normal. OTHER FINDINGS: None. IMPRESSION: No active disease. No significant interval change compared to the prior examination(s).
[2017-10-04] MEDS ORDERED: Albuterol-Ipratrop 3 mg / 0.5 (3 ml) UD IH PRN (18:28)
--- NOTE | 2017-10-04 19:18 | CARD ---
APPROVED REPORT Date of service: 10/04/2017 EKG Measurement Heart [id number] <Conclusion> Normal sinus rhythm ST & T wave abnormality, consider inferolateral ischemia Abnormal ECG
[2017-10-04] MEDS ORDERED: Sodium Chloride 0.9% 1,000 ML IV STA (19:19)
[2017-10-04] MEDS ORDERED: Morphine 2 mg/ml ISec IVP PRN (19:19)
--- NOTE | 2017-10-04 19:33 | CP.PCM.HP ---
<Kristen Lan - Last Filed: 10/04/17 20:56> History of Present Illness - History of Present Illness History of Present Illness: Kristen Lan, PGY-1, History and Physical for Dr. Thorpe 87 year old female with past medical history of diabetes mellitus type 2, myelodysplastic syndrome, hyperlipidemia, dementia, right proximal fracture humerus was brought to the emergency department by her daughter due to fatigue and chills for one day. Patient is well known to the physicians and staff at the hospital. Patient also reports urinary frequency. As per daughter, patient had to use bathroom every 20 minutes yesterday. Patient has had these symptoms before and patient's daughter "knows that hemoglobin is low". Patient denies dizziness, headache, chest pain, shortness of breath, diaphoresis, dysuria, hematuria, hematochezia, and melena. Patient also denies nausea, vomiting, constipation, diarrhea, and numbness/tingling of fingers or toes Past medical history: as reported above in HPI Past surgical history: cataract surgery, tonsillectomy Family history: Brother had myelodysplastic syndrome and is . Sister has myelodysplastic syndrome and is still alive. Allergies: amoxicillin PMD: Dr. Mari Valadez/Onc: Dr. Gomez Pharmacy: [facility] on [address] in [place] Insurance: [employer] (medicare) Present on Admission - Present on Admission Any Indicators Present on Admission: No History of DVT/PE: No History of Uncontrolled Diabetes: No Review of Systems - Constitutional Constitutional: As Per HPI, Chills, Fatigue, Lethargy. absent: Fever, Headache - EENT Eyes: absent: Blurred Vision - Cardiovascular Cardiovascular: absent: Chest Pain, Chest Pain at Rest, Irregular Heart Rhythm, Orthopnea - Respiratory Respiratory: absent: Cough, Dyspnea, Wheezing - Gastrointestinal Gastrointestinal: absent: Abdominal Pain, Change in Bowel Habits, Hematochezia - Genitourinary Genitourinary: Urinary Frequency. absent: Dysuria, Hematuria - Musculoskeletal Musculoskeletal: Back Pain (right scapular pain). absent: Myalgias - Neurological Neurological: absent: Dizziness, Numbness, Vertigo Past Patient History - Infectious Disease Hx of Infectious Diseases: None - Tetanus Immunizations Tetanus Immunization: Unknown - Past Medical History & Family History Past Medical History?: Yes - Past Social History Smoking Status: Former Smoker Alcohol: None (as per daughter) Drugs: Opiates (percocet for back pain) - CARDIAC Hx Hypertension: Yes - PULMONARY Hx Bronchitis: Yes Hx Pneumonia: Yes - NEUROLOGICAL Hx Alzheimer's Disease: Yes Hx Dementia: Yes - HEENT Hx HEENT Problems: Yes Hx Cataracts: Yes (BOTH EYES) - RENAL Hx Chronic Kidney Disease: No - ENDOCRINE/METABOLIC Hx Endocrine Disorders: Yes Hx Diabetes Mellitus Type 2: Yes - HEMATOLOGICAL/ONCOLOGICAL Hx Anemia: Yes Hx Leukemia: Yes - INTEGUMENTARY Hx Dermatological Problems: No - MUSCULOSKELETAL/RHEUMATOLOGICAL Hx Arthritis: Yes Hx Rheumatoid Arthritis: Yes - GASTROINTESTINAL Hx Gastrointestinal Disorders: No - GENITOURINARY/GYNECOLOGICAL Hx Genitourinary Disorders: Yes (esbl /uti sepsis,SOME INCONTINENCY.WEARS PULLUPS.) Hx Reproductive Disorders: No - PSYCHIATRIC Hx Psychophysiologic Disorder: No Hx Substance Use: No - SURGICAL HISTORY Hx Tonsillectomy: Yes Other/Comment: right port a cath - ANESTHESIA Hx Anesthesia: Yes Hx Anesthesia Reactions: No Hx Malignant Hyperthermia: No Meds Home Medications: Home Medication List Medication Instructions Recorded Confirmed Type Polyethylene Glycol 3350 [Miralax] 17 gm PO BID #14 ml 10/05/17 Rx Allergies/Adverse Reactions: Allergies Allergy/AdvReac Type Severity Reaction Status Date / Time amoxicillin Allergy Mild RASH Verified 09/07/17 17:00 Physical Exam - Constitutional Appears: Well, Non-toxic - Head Exam Head Exam: ATRAUMATIC, NORMOCEPHALIC - Eye Exam Eye Exam: EOMI Pupil Exam: PERRL - Respiratory Exam Respiratory Exam: Clear to Auscultation Bilateral, NORMAL BREATHING PATTERN - Cardiovascular Exam Cardiovascular Exam: REGULAR RHYTHM, RRR - GI/Abdominal Exam GI & Abdominal Exam: Normal Bowel Sounds, Soft - Extremities Exam Extremities exam: Positive for: full ROM - Neurological Exam Neurological exam: Alert, CN II-XII Intact Additional comments: dementia - Psychiatric Exam Psychiatric exam: Normal Affect, Normal Mood Results - Vital Signs Recent Vital Signs: Last Vital Signs Temp 98.1 F 10/04/17 18:18 Pulse 86 10/04/17 18:18 Resp 18 10/04/17 18:18 BP 131/59 L 10/04/17 18:18 Pulse Ox 99 10/04/17 18:18 - Labs Result Diagrams: 10/04/17 15:00 10/04/17 15:00 Assessment & Plan - Assessment and Plan (Free Text) Assessment: 87 year old female with past medical history of diabetes mellitus type 2, myelodysplastic syndrome, hyperlipidemia, dementia, right proximal fracture humerus was brought to the emergency department by her daughter due to fatigue and chills for one day. Plan: Symptomatic Anemia 2/2 to myelodysplastic syndrome -Patient has a history of symptomatic anemia and more than 25 transfusions. -Hemoglobin: 5.2 -Hematocrit: 15.3 -Patient will be transfused two units of leukoreduced packed RBCs. Type and cross completed. Waiver signed. -H&H Q4 -Heme/Onc, Dr. Gomez, consulted for recommendations Acute Kidney Injury -Creatinine: 1.3. Baseline is 1.0 from previous admissions. -BUN: 30 -Due to BUN/Creatinine ratio more than 20, likely due to hydration. -IV fluid hydration with NS 0.9% at 100 ml/hr UTI -Rule out UTI -Does not fulfill SIRS criteria: WBC: 5.3, Temperature: 98.1, Pulse: 86, Respiratory Rate: 18 -Blood culture, urine culture ordered. -Lactate: 2.0 -UA: moderate leukocyte esterase, 0-2 WBC, negative bacteria, slightly cloudy urine -Patient was initially started on ciprofloaxicin 400 mg, which was discontinued due to doubtful UTI. History of Right Proximal Humerus Fracture -morphine 2 mg Q4 IVP History of Hypertension -lisinopril 2.5 mg daily History of diabetes -Random glucose: 184 -Fingerstick glucose ACHS -HgbA1c ordered -Medium dose lispro sliding scale insulin -aspirin 81 mg -lisinopril 2.5 mg DVT prophylaxis: sequential compression device GI prophylaxis: famotidine 40 mg - Date & Time Date: 10/04/17 Time: 19:43 <Dylan Thorpe - Last Filed: 10/06/17 12:56> Results - Vital Signs Recent Vital Signs: Last Vital Signs Temp 98 F 10/05/17 12:00 Pulse 72 10/05/17 14:00 Resp 16 10/05/17 12:00 BP 100/72 10/05/17 12:00 Pulse Ox 99 10/05/17 04:35 - Labs Result Diagrams: 10/05/17 13:00 10/05/17 06:00 Labs: Laboratory Results - last 24 hr 10/05/17 13:00 WBC 5.3 D RBC 2.72 L Hgb 8.8 L Hct 24.8 L MCV 91.2 MCH 32.4 MCHC 35.5 RDW 22.3 H Plt Count 255 MPV 10.5 Attending/Attestation - Attestation I have personally seen and examined this patient.: Yes I have fully participated in the care of the patient.: Yes I have reviewed all pertinent clinical information: Yes Notes (Text): 10/06/17 12:51 Attending note; Patient seen and examined with resident in ER. Patient's daughter by the bedside. Patient is a 87 year old female with past medical history of diabetes mellitus type 2, myelodysplastic syndrome, hyperlipidemia, dementia, right proximal fracture humerus, multiple transfusions was brought to the emergency department by her daughter due to fatigue. Patient was found to be anemic with a hemoglobin of 5.2. 2 units of blood transfusion ordered. Case discussed with oncology Dr. Gomez in detail. Back pain; musculoskeletal pain. Suggested Tylenol. Advised to avoid Percocet. Constipation; started on MiraLAX. Patient is tolerating diet. No nausea or vomiting. Had a bowel movement today. Patient is advised to avoid constipation. Chest x-rays negative for infiltrates. Patient is medically stable. Advised to follow-up with PMD Dr. Guerra. Follow-up with Dr. gomez oncology next week.
[2017-10-04 20:03] LABS: VENOUS BLOOD GAS BASE EXCESS -1.1 mmol/L (0.0-2.0); VENOUS BLOOD GAS PO2 58 mm/Hg (30-55); VENOUS BLOOD PH 7.35 (7.32-7.43)
--- NOTE | 2017-10-04 21:11 | CP.PCM.CON ---
Past Patient History - Infectious Disease Hx of Infectious Diseases: None - Tetanus Immunizations Tetanus Immunization: Unknown - Past Medical History & Family History Past Medical History?: Yes - Past Social History Smoking Status: Former Smoker Alcohol: None (as per daughter) Drugs: Opiates (percocet for back pain) - CARDIAC Hx Hypertension: Yes - PULMONARY Hx Bronchitis: Yes Hx Pneumonia: Yes - NEUROLOGICAL Hx Alzheimer's Disease: Yes Hx Dementia: Yes - HEENT Hx HEENT Problems: Yes Hx Cataracts: Yes (BOTH EYES) - RENAL Hx Chronic Kidney Disease: No - ENDOCRINE/METABOLIC Hx Endocrine Disorders: Yes Hx Diabetes Mellitus Type 2: Yes - HEMATOLOGICAL/ONCOLOGICAL Hx Anemia: Yes Hx Leukemia: Yes - INTEGUMENTARY Hx Dermatological Problems: No - MUSCULOSKELETAL/RHEUMATOLOGICAL Hx Arthritis: Yes Hx Rheumatoid Arthritis: Yes - GASTROINTESTINAL Hx Gastrointestinal Disorders: No - GENITOURINARY/GYNECOLOGICAL Hx Genitourinary Disorders: Yes (esbl /uti sepsis,SOME INCONTINENCY.WEARS PULLUPS.) Hx Reproductive Disorders: No - PSYCHIATRIC Hx Psychophysiologic Disorder: No Hx Substance Use: No - SURGICAL HISTORY Hx Tonsillectomy: Yes Other/Comment: right port a cath - ANESTHESIA Hx Anesthesia: Yes Hx Anesthesia Reactions: No Hx Malignant Hyperthermia: No Meds Allergies/Adverse Reactions: Allergies Allergy/AdvReac Type Severity Reaction Status Date / Time amoxicillin Allergy Mild RASH Verified 09/07/17 17:00 - Medications Medications: Current Medications Albuterol/Ipratropium (Duoneb 3 Mg/0.5 Mg (3 Ml) Ud) 3 ml IH Q2H PRN PRN Reason: Shortness of Breath Famotidine (Pepcid) 40 mg PO HS VERONICA Sodium Chloride (Sodium Chloride 0.9%) 1,000 mls @ 100 mls/hr IV .Q10H VERONICA Insulin Human Regular (Humulin R Med) 0 units SC ACHS VERONICA PRN Reason: Protocol Lisinopril (Zestril) 2.5 mg PO DAILY VERONICA Morphine Sulfate (Morphine) 2 mg IVP Q4 PRN PRN Reason: Pain, moderate (4-7) Results - Vital Signs Recent Vital Signs: Last Vital Signs Temp 98.1 F 10/04/17 18:18 Pulse 86 10/04/17 18:18 Resp 18 10/04/17 18:18 BP 131/59 L 10/04/17 18:18 Pulse Ox 99 10/04/17 18:18 - Labs Result Diagrams: 10/04/17 15:00 10/04/17 15:00 Labs: Laboratory Results - last 24 hr 10/04/17 19:51 pO2 58 H VBG pH 7.35 VBG pCO2 45.0 VBG HCO3 24.8 VBG Total CO2 26.2 VBG O2 Sat (Calc) 93.7 H VBG Base Excess -1.1 L VBG Potassium 4.8 Sodium 134.0 Chloride 103.0 Glucose 256 H Lactate 2.4 H FiO2 21.0 Venous Blood Potassium 4.8
[2017-10-05 06:14] VITALS: O2SAT 99
[2017-10-05 06:34] LABS: BASO # 0.02 K/mm3 (0.0-2.0); BASO % 0.3 % (0.0-3.0); EOS # 0.1 (0.0-0.7); EOS % 1.9 % (1.5-5.0); GRAN # 6.3 (1.4-6.5); GRAN % 83.7 % (50.0-68.0); HEMOGLOBIN 9.3 g/dL (12.0-16.0); LYMPH # 0.6 (1.2-3.4); LYMPH % 8.4 % (22.0-35.0); MEAN CELL VOLUME 91.8 fl (80.0-105.0); MEAN CORPUSCULAR HEMOGLOBIN 31.7 pg (25.0-35.0); MEAN CORPUSCULAR HGB CONC 34.6 g/dl (31.0-37.0); MEAN PLATELET VOLUME 10.9 fl (7.0-11.0); MONO # 0.4 (0.1-0.6); MONO % 5.7 % (1.0-6.0); RBC 2.93 10^6/uL (3.5-6.1); RED CELL DISTRIBUTION WIDTH 21.9 % (11.5-14.5); WHITE BLOOD COUNT 7.5 10^3/ul (4.5-11.0)
[2017-10-05 06:53] LABS: ALBUMIN 4.4 g/dL (3.0-4.8); CALCIUM 9.1 mg/dL (8.4-10.5)
[2017-10-05] MEDS: Insulin Reg-MEDIUM-Coverage SC SCH ×3 (08:34→12:50)
[2017-10-05] MEDS: Sodium Chloride 0.9% 1,000 ML IV SCH ×2 (09:36→09:37)
[2017-10-05] MEDS ORDERED: Insulin Detemir 100 units/ml Vial (Levemir) SC SCH (10:00)
--- NOTE | 2017-10-05 12:33 | CT ---
Date of service: 10/05/2017 PROCEDURE: CT Abdomen and Pelvis without intravenous contrast HISTORY: Right flank pain COMPARISON: Comparison made with prior CT scan abdomen pelvis 04/24/2016. TECHNIQUE: Contiguous helical/transaxial sections of the abdomen pelvis performed without oral or intravenous contrast material. Additional 2D sagittal and coronal reformats provided Radiation dose: Total exam DLP = 252.27 mGy-cm. This CT exam was performed using one or more of the following dose reduction techniques: Automated exposure control, adjustment of the mA and/or kV according to patient size, and/or use of iterative reconstruction technique. FINDINGS: LOWER THORAX: Small bilateral effusions and mild bibasilar atelectasis and or infiltrates right greater than left. In addition, findings suggest mild pulmonary edema. LIVER: Unremarkable. No gross lesion or ductal dilatation. GALLBLADDER AND BILE DUCTS: Gallbladder physiologically distended. No evidence of intraluminal gallbladder calculi. PANCREAS: Pancreas appears atrophic and fatty replaced. . SPLEEN: There are some rounded calcifications seen in the splenic hilar region likely vascular in origin. Possibility of small aneurysms to be considered. . Few additional calcifications within the splenic parenchyma on near the hilar region could be vascular as well however the possibility of calcified splenic granulomata not excluded. ADRENALS: No adrenal lesions. . KIDNEYS AND URETERS: Unremarkable. No hydronephrosis. No solid mass. VASCULATURE: Atherosclerotic plaque seen along the abdominal aorta and iliac arteries. BOWEL: Evaluation of the bowel is somewhat limited due to the lack of oral contrast material. The stomach is incompletely distended. Visualized loops of small bowel exhibit normal contour and caliber. No evidence of acute mechanical small bowel obstruction. Moderate amount of stool seen throughout the large bowel consistent with mild fecal retention/ constipation. Scattered colonic diverticular again noted along the sigmoid left colon. No radiographic evidence of acute diverticulitis. APPENDIX: Normal-appearing appendix best seen on coronal image number [id number]. PERITONEUM: Unremarkable. No free fluid. No free air. LYMPH NODES: Unremarkable. No enlarged lymph nodes. BLADDER: Urinary bladder is markedly distended. No evidence of intraluminal urinary bladder calculi. No abnormal urinary bladder wall thickening. . REPRODUCTIVE: Unremarkable. BONES: No acute fracture. OTHER FINDINGS: None. IMPRESSION: Small bilateral effusions and mild bibasilar atelectasis and/or infiltrates. No acute intra abdominal pathology. Sigmoid diverticulosis without radiographic evidence of acute diverticulitis. Findings consistent with constipation. Questionable small splenic artery aneurysm. . .
[2017-10-05 13:13] LABS: HEMOGLOBIN 8.8 g/dL (12.0-16.0); MEAN CELL VOLUME 91.2 fl (80.0-105.0); MEAN CORPUSCULAR HEMOGLOBIN 32.4 pg (25.0-35.0); MEAN CORPUSCULAR HGB CONC 35.5 g/dl (31.0-37.0); MEAN PLATELET VOLUME 10.5 fl (7.0-11.0); RBC 2.72 10^6/uL (3.5-6.1); RED CELL DISTRIBUTION WIDTH 22.3 % (11.5-14.5); WHITE BLOOD COUNT 5.3 10^3/ul (4.5-11.0)
--- NOTE | 2017-10-05 14:56 | CP.PCM.DIS ---
<ShamikagonzalesOdin espinaltova - Last Filed: 10/05/17 14:46> Provider - Provider Date of Admission: 10/04/17 17:48 Attending physician: Dylan Thorpe MD Primary care physician: Dr. Guerra Time Spent in preparation of Discharge (in minutes): 100 Diagnosis - Discharge Diagnosis (1) Signs and symptoms of anemia Status: Acute Priority: High (2) Anemia Status: Chronic Priority: High Hospital Course - Lab Results Lab Results: Most Recent Lab Values WBC 5.3 10^3/ul (4.5-11.0) D 10/05/17 13:00 RBC 2.72 10^6/uL (3.5-6.1) L 10/05/17 13:00 Hgb 8.8 g/dL (12.0-16.0) L 10/05/17 13:00 Hct 24.8 % (36.0-48.0) L 10/05/17 13:00 MCV 91.2 fl (80.0-105.0) 10/05/17 13:00 MCH 32.4 pg (25.0-35.0) 10/05/17 13:00 MCHC 35.5 g/dl (31.0-37.0) 10/05/17 13:00 RDW 22.3 % (11.5-14.5) H 10/05/17 13:00 Plt Count 255 10^3/uL (120.0-450.0) 10/05/17 13:00 MPV 10.5 fl (7.0-11.0) 10/05/17 13:00 Gran % 83.7 % (50.0-68.0) H 10/05/17 06:00 Lymph % (Auto) 8.4 % (22.0-35.0) L 10/05/17 06:00 Leake % (Auto) 5.7 % (1.0-6.0) 10/05/17 06:00 Eos % (Auto) 1.9 % (1.5-5.0) 10/05/17 06:00 Baso % (Auto) 0.3 % (0.0-3.0) 10/05/17 06:00 Gran # 6.30 (1.4-6.5) 10/05/17 06:00 Lymph # (Auto) 0.6 (1.2-3.4) L 10/05/17 06:00 Leake # (Auto) 0.4 (0.1-0.6) 10/05/17 06:00 Eos # (Auto) 0.1 (0.0-0.7) 10/05/17 06:00 Baso # (Auto) 0.02 K/mm3 (0.0-2.0) 10/05/17 06:00 PT 13.6 SECONDS (9.4-12.5) H 10/04/17 15:00 INR 1.19 10/04/17 15:00 APTT 22.8 Seconds (25.1-36.5) L 10/04/17 15:00 pO2 58 mm/Hg (30-55) H 10/04/17 19:51 VBG pH 7.35 (7.32-7.43) 10/04/17 19:51 VBG pCO2 45.0 (40-60) 10/04/17 19:51 VBG HCO3 24.8 mmol/l (21-28) 10/04/17 19:51 VBG Total CO2 26.2 mmol.L (22-28) 10/04/17 19:51 VBG O2 Sat (Calc) 93.7 % (40-65) H 10/04/17 19:51 VBG Base Excess -1.1 mmol/L (0.0-2.0) L 10/04/17 19:51 VBG Potassium 4.8 mmol/L (3.6-5.2) 10/04/17 19:51 Sodium 134.0 mmol/L (132-148) 10/04/17 19:51 Chloride 103.0 mmol/L (98-107) 10/04/17 19:51 Glucose 256 mg/dl (65-105) H 10/04/17 19:51 Lactate 2.4 mmol/L (0.7-2.1) H 10/04/17 19:51 FiO2 21.0 % 10/04/17 19:51 Sodium 135 mmol/L (132-148) 10/05/17 06:00 Potassium 4.8 mmol/L (3.6-5.0) 10/05/17 06:00 Chloride 98 mmol/L (98-107) 10/05/17 06:00 Carbon Dioxide 26 mmol/L (21-33) 10/05/17 06:00 Anion Gap 16 (10-20) 10/05/17 06:00 BUN 30 mg/dL (7-21) H 10/05/17 06:00 Creatinine 1.2 mg/dl (0.7-1.2) 10/05/17 06:00 Est GFR ( Amer) 51 10/05/17 06:00 Est GFR (Non-Af Amer) 42 10/05/17 06:00 Random Glucose 311 mg/dL (70-110) H* D 10/05/17 06:00 Calcium 9.1 mg/dL (8.4-10.5) 10/05/17 06:00 Phosphorus 3.1 mg/dL (2.5-4.5) 10/05/17 06:00 Magnesium 1.8 mg/dL (1.7-2.2) 10/05/17 06:00 Total Bilirubin 3.1 mg/dL (0.2-1.3) H 10/05/17 06:00 AST 46 U/L (14-36) H D 10/05/17 06:00 ALT 21 U/L (7-56) 10/05/17 06:00 Alkaline Phosphatase 93 U/L (38-126) 10/05/17 06:00 Lactate Dehydrogenase 446 U/L (333-699) 10/04/17 15:00 Total Creatine Kinase 25 U/L (35-230) L 10/04/17 15:00 Troponin I < 0.01 ng/mL D 10/04/17 15:00 NT-Pro-B Natriuret Pep 307 pg/mL (0-450) 10/04/17 15:00 Total Protein 8.6 g/dL (5.8-8.3) H 10/05/17 06:00 Albumin 4.4 g/dL (3.0-4.8) 10/05/17 06:00 Globulin 4.2 gm/dL 10/05/17 06:00 Albumin/Globulin Ratio 1.0 (1.1-1.8) L 10/05/17 06:00 Venous Blood Potassium 4.8 mmol/L (3.6-5.2) 10/04/17 19:51 Urine Color Yellow (YELLOW) 10/04/17 16:00 Urine Appearance Slight-cloudy (CLEAR) 10/04/17 16:00 Urine pH 6.0 (4.7-8.0) 10/04/17 16:00 Ur Specific [place] 1.015 (1.005-1.035) 10/04/17 16:00 Urine Protein Negative mg/dL (<30 mg/dL) 10/04/17 16:00 Urine Glucose (UA) Negative mg/dL (NEGATIVE) 10/04/17 16:00 Urine Ketones Negative mg/dL (NEGATIVE) 10/04/17 16:00 Urine Blood Negative (NEGATIVE) 10/04/17 16:00 Urine Nitrate Negative (NEGATIVE) 10/04/17 16:00 Urine Bilirubin Negative (NEGATIVE) 10/04/17 16:00 Urine Urobilinogen 0.2 E.U./dL (<1 E.U./dL) 10/04/17 16:00 Ur Leukocyte Esterase Moderate Debby/uL (NEGATIVE) H 10/04/17 16:00 Urine RBC Negative /hpf (0-2) 10/04/17 16:00 Urine WBC 0 - 2 /hpf (0-6) 10/04/17 16:00 Ur Epithelial Cells 0 - 2 /hpf (0-5) 10/04/17 16:00 Urine Bacteria Neg (NEG) 10/04/17 16:00 Blood Type O POSITIVE 10/04/17 15:00 Antibody Screen Positive 10/04/17 15:00 Antibody Identification Inconclusive Panel 10/04/17 15:00 Crossmatch See Detail 10/04/17 15:00 BBK History Checked Patient has bt 10/04/17 15:00 - Hospital Course Hospital Course: 87 year old female with past medical history of diabetes mellitus type 2, hypertension, 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 Patient also reported urinary frequency. The patient has history of multiple admissions for symptomatic anemia, and had received more than 25 transfusions in total. She denied dizziness, headache, chest pain, shortness of breath, diaphoresis, dysuria, hematuria, hematochezia, and melena. She also denied, nausea, vomiting , constipation, diarrhea, and numbness/tingling. Patient had complaint of increased urinary frequency and right scapular pain. As a result, CT of the abdomen was done in the ER. Abdominal CT showed small bilateral effusions and mild bibasilar atelectasis and/or infiltrates. Sigmoid diverticulosis. Findings consistent with constipation. Patient was admitted for symptomatic anemia and possible UTI. Her Hgb was found to be 5.2 and hematocrit 15.3. Her baseline Hgb is around 8-9. Hematology/oncology, Dr. Gomez, was consulted regarding patients history of MDS. Patient received 2 units of Leukocyte-reduced RBCs, and repeat CBC on 10/05 at 6:00 showed Hgb 9.3 and hematocrit 26.9. Regarding suspected UTI , urinalysis results showed moderate leukocyte esterase, 0-2 WBC, negative bacteria, and slightly cloudy urine. Urine culture was negative for infection. Patient was initially given ciprofloxacin 400mg in the ED, which was later discontinued due to doubtful UTI. Patient was also treated with Albuterol/ Ipratropium, insulin, lisinopril, pepcid, SCDs, and morphine prn. EKG showed NSR , HR 88, and ST and T wave abnormalities. CXR showed no active disease and no change from previous readings. Patient will be discharged to home and is to follow up with PCP, Dr. Guerra. Patient is also to follow up with Heme/Onc physician, Dr. Gomez, for follow up regarding MDS and multiple bouts of symptomatic anemia for possible chemotherapy or outpatient blood transfusions. Patient should refrain from percocet use due to dizziness and constipation. Patient will be prescribed miralax to help with constipation. - Date & Time of H&P Date of H&P: 10/04/17 Time of H&P: 19:23 Discharge Exam - Head Exam Head Exam: ATRAUMATIC, NORMOCEPHALIC - Eye Exam Eye Exam: EOMI, PERRL - Respiratory Exam Respiratory Exam: Clear to PA & Lateral, NORMAL BREATHING PATTERN - Cardiovascular Exam Cardiovascular Exam: REGULAR RHYTHM - GI/Abdominal Exam GI & Abdominal Exam: Normal Bowel Sounds, Soft - Neurological Exam Neurological exam: Alert - Psychiatric Exam Psychiatric exam: Normal Affect, Normal Mood - Skin Skin Exam: Dry, Intact, Pallor Discharge Plan - Discharge Medications Prescriptions: Polyethylene Glycol 3350 [Miralax] 17 gm PO BID #14 ml - Follow Up Plan Condition: STABLE Disposition: HOME/ ROUTINE Instructions: Blood Transfusion , Fatigue (DC), Myelodysplastic Syndromes (MDS ) (DC) Additional Instructions: 1. Follow up with Dr. Gomez for possible chemotherapy or outpatient blood transfusions 2. Refrain from percocet when possible due to dizziness and constipation 3. Continue with daily activities 4. Take miralax to help with constipation <Dylan Thorpe - Last Filed: 10/06/17 12:58> Provider - Provider Date of Admission: 10/04/17 17:48 Attending physician: Dylan Thorpe MD Hospital Course - Lab Results Lab Results: Most Recent Lab Values WBC 5.3 10^3/ul (4.5-11.0) D 10/05/17 13:00 RBC 2.72 10^6/uL (3.5-6.1) L 10/05/17 13:00 Hgb 8.8 g/dL (12.0-16.0) L 10/05/17 13:00 Hct 24.8 % (36.0-48.0) L 10/05/17 13:00 MCV 91.2 fl (80.0-105.0) 10/05/17 13:00 MCH 32.4 pg (25.0-35.0) 10/05/17 13:00 MCHC 35.5 g/dl (31.0-37.0) 10/05/17 13:00 RDW 22.3 % (11.5-14.5) H 10/05/17 13:00 Plt Count 255 10^3/uL (120.0-450.0) 10/05/17 13:00 MPV 10.5 fl (7.0-11.0) 10/05/17 13:00 Gran % 83.7 % (50.0-68.0) H 10/05/17 06:00 Lymph % (Auto) 8.4 % (22.0-35.0) L 10/05/17 06:00 Leake % (Auto) 5.7 % (1.0-6.0) 10/05/17 06:00 Eos % (Auto) 1.9 % (1.5-5.0) 10/05/17 06:00 Baso % (Auto) 0.3 % (0.0-3.0) 10/05/17 06:00 Gran # 6.30 (1.4-6.5) 10/05/17 06:00 Lymph # (Auto) 0.6 (1.2-3.4) L 10/05/17 06:00 Leake # (Auto) 0.4 (0.1-0.6) 10/05/17 06:00 Eos # (Auto) 0.1 (0.0-0.7) 10/05/17 06:00 Baso # (Auto) 0.02 K/mm3 (0.0-2.0) 10/05/17 06:00 PT 13.6 SECONDS (9.4-12.5) H 10/04/17 15:00 INR 1.19 10/04/17 15:00 APTT 22.8 Seconds (25.1-36.5) L 10/04/17 15:00 pO2 58 mm/Hg (30-55) H 10/04/17 19:51 VBG pH 7.35 (7.32-7.43) 10/04/17 19:51 VBG pCO2 45.0 (40-60) 10/04/17 19:51 VBG HCO3 24.8 mmol/l (21-28) 10/04/17 19:51 VBG Total CO2 26.2 mmol.L (22-28) 10/04/17 19:51 VBG O2 Sat (Calc) 93.7 % (40-65) H 10/04/17 19:51 VBG Base Excess -1.1 mmol/L (0.0-2.0) L 10/04/17 19:51 VBG Potassium 4.8 mmol/L (3.6-5.2) 10/04/17 19:51 Sodium 134.0 mmol/L (132-148) 10/04/17 19:51 Chloride 103.0 mmol/L (98-107) 10/04/17 19:51 Glucose 256 mg/dl (65-105) H 10/04/17 19:51 Lactate 2.4 mmol/L (0.7-2.1) H 10/04/17 19:51 FiO2 21.0 % 10/04/17 19:51 Sodium 135 mmol/L (132-148) 10/05/17 06:00 Potassium 4.8 mmol/L (3.6-5.0) 10/05/17 06:00 Chloride 98 mmol/L (98-107) 10/05/17 06:00 Carbon Dioxide 26 mmol/L (21-33) 10/05/17 06:00 Anion Gap 16 (10-20) 10/05/17 06:00 BUN 30 mg/dL (7-21) H 10/05/17 06:00 Creatinine 1.2 mg/dl (0.7-1.2) 10/05/17 06:00 Est GFR ( Amer) 51 10/05/17 06:00 Est GFR (Non-Af Amer) 42 10/05/17 06:00 Random Glucose 311 mg/dL (70-110) H* D 10/05/17 06:00 Calcium 9.1 mg/dL (8.4-10.5) 10/05/17 06:00 Phosphorus 3.1 mg/dL (2.5-4.5) 10/05/17 06:00 Magnesium 1.8 mg/dL (1.7-2.2) 10/05/17 06:00 Total Bilirubin 3.1 mg/dL (0.2-1.3) H 10/05/17 06:00 AST 46 U/L (14-36) H D 10/05/17 06:00 ALT 21 U/L (7-56) 10/05/17 06:00 Alkaline Phosphatase 93 U/L (38-126) 10/05/17 06:00 Lactate Dehydrogenase 446 U/L (333-699) 10/04/17 15:00 Total Creatine Kinase 25 U/L (35-230) L 10/04/17 15:00 Troponin I < 0.01 ng/mL D 10/04/17 15:00 NT-Pro-B Natriuret Pep 307 pg/mL (0-450) 10/04/17 15:00 Total Protein 8.6 g/dL (5.8-8.3) H 10/05/17 06:00 Albumin 4.4 g/dL (3.0-4.8) 10/05/17 06:00 Globulin 4.2 gm/dL 10/05/17 06:00 Albumin/Globulin Ratio 1.0 (1.1-1.8) L 10/05/17 06:00 Venous Blood Potassium 4.8 mmol/L (3.6-5.2) 10/04/17 19:51 Urine Color Yellow (YELLOW) 10/04/17 16:00 Urine Appearance Slight-cloudy (CLEAR) 10/04/17 16:00 Urine pH 6.0 (4.7-8.0) 10/04/17 16:00 Ur Specific [place] 1.015 (1.005-1.035) 10/04/17 16:00 Urine Protein Negative mg/dL (<30 mg/dL) 10/04/17 16:00 Urine Glucose (UA) Negative mg/dL (NEGATIVE) 10/04/17 16:00 Urine Ketones Negative mg/dL (NEGATIVE) 10/04/17 16:00 Urine Blood Negative (NEGATIVE) 10/04/17 16:00 Urine Nitrate Negative (NEGATIVE) 10/04/17 16:00 Urine Bilirubin Negative (NEGATIVE) 10/04/17 16:00 Urine Urobilinogen 0.2 E.U./dL (<1 E.U./dL) 10/04/17 16:00 Ur Leukocyte Esterase Moderate Debby/uL (NEGATIVE) H 10/04/17 16:00 Urine RBC Negative /hpf (0-2) 10/04/17 16:00 Urine WBC 0 - 2 /hpf (0-6) 10/04/17 16:00 Ur Epithelial Cells 0 - 2 /hpf (0-5) 10/04/17 16:00 Urine Bacteria Neg (NEG) 10/04/17 16:00 Blood Type O POSITIVE 10/04/17 15:00 Antibody Screen Positive 10/04/17 15:00 Antibody Identification Inconclusive Panel 10/04/17 15:00 Crossmatch See Detail 10/04/17 15:00 BBK History Checked Patient has bt 10/04/17 15:00 Attending/Attestation - Attestation I have personally seen and examined this patient.: Yes I have fully participated in the care of the patient.: Yes I have reviewed all pertinent clinical information, including history, physical exam and plan: Yes Notes (Text): 10/06/17 12:56 Attending note; Patient seen and examined with resident. Patient's grand daughter by the bedside. Patient is a 87 year old female with past medical history of diabetes mellitus type 2, myelodysplastic syndrome, hyperlipidemia, dementia, right proximal fracture humerus, multiple transfusions was brought to the emergency department by her daughter due to fatigue. Patient was found to be anemic with a hemoglobin of 5.2. s/p 2 units of blood transfusion . Hemoglobin is stable at 8.8. No active bleeding. Case discussed with oncology Dr. Gomez in detail. Back pain; musculoskeletal pain. Suggested Tylenol. Advised to avoid Percocet. Constipation; started on MiraLAX. Patient is tolerating diet. No nausea or vomiting. Had a bowel movement today. Patient is advised to avoid constipation. Chest x-rays negative for infiltrates. Patient is medically stable. Advised to follow-up with PMD Dr. Guerra. Follow-up with Dr. gomez oncology next week. 10/06/17 12:58
[2017-10-05 15:00] VITALS: BP 100/72; PULSE 72; RESP 16; TEMP 98
== END 2017-10-05 15:14 | disposition home or self-care (01) | DRG 812 ==
LOC: ED 14:54 → ERH 17:48 → 2RSO 10-05 05:02
PROVIDERS: ADMIT Internal Medicine; ATTEND Internal Medicine
PROC: 30233N1 Transfusion of Nonautologous Red Blood Cells into Peripheral Vein, Percutaneous Approach (ICD-10-PCS; principal; 2017-10-04)
DX: D64.9 Anemia, unspecified (principal); N39.0 Urinary tract infection, site not specified; D46.9 Myelodysplastic syndrome, unspecified; I10 Essential (primary) hypertension; G30.9 Alzheimer's disease, unspecified; F02.80 Dementia in other diseases classified elsewhere, unspecified severity, without behavioral disturbance, psychotic disturbance, mood disturbance, and anxiety; E11.9 Type 2 diabetes mellitus without complications; E78.5 Hyperlipidemia, unspecified; K57.30 Diverticulosis of large intestine without perforation or abscess without bleeding; K59.00 Constipation, unspecified; M06.9 Rheumatoid arthritis, unspecified; M54.9 Dorsalgia, unspecified; Z87.891 Personal history of nicotine dependence; Z87.01 Personal history of pneumonia (recurrent); Z79.4 Long term (current) use of insulin; Z88.1 Allergy status to other antibiotic agents

== ENCOUNTER 2017-11-21 14:01 | Emergency (ER) | payer MEDICARE ==
[2017-11-21 14:01] VITALS: BMI 23.8
[2017-11-21] MEDS ORDERED: Sodium Chloride 0.9% 500 ML IV STA (14:42)
[2017-11-21 14:59] LABS: BASO # 0.03 K/mm3 (0.0-2.0); BASO % 0.5 % (0.0-3.0); EOS # 0.2 (0.0-0.7); EOS % 3.9 % (1.5-5.0); GRAN # 4.28 (1.4-6.5); GRAN % 73.4 % (50.0-68.0); HEMOGLOBIN 8.1 g/dL (12.0-16.0); LYMPH % 17.1 % (22.0-35.0); MEAN CELL VOLUME 96.1 fl (80.0-105.0); MEAN CORPUSCULAR HEMOGLOBIN 31.3 pg (25.0-35.0); MEAN CORPUSCULAR HGB CONC 32.5 g/dl (31.0-37.0); MEAN PLATELET VOLUME 11.2 fl (7.0-11.0); MONO # 0.3 (0.1-0.6); MONO % 5.1 % (1.0-6.0); RBC 2.59 10^6/uL (3.5-6.1); RED CELL DISTRIBUTION WIDTH 19.6 % (11.5-14.5); WHITE BLOOD COUNT 5.8 10^3/ul (4.5-11.0)
[2017-11-21 15:05] LABS: INR 1.18; PARTIAL THROMBOPLASTIN TIME 25.6 Seconds (25.1-36.5); PROTHROMBIN TIME 13.5 SECONDS (9.4-12.5)
[2017-11-21 15:09] LABS: ALBUMIN 4.2 g/dL (3.0-4.8); ALT/SGPT 25 U/L (7-56); AST/SGOT 34 U/L (14-36); BLOOD UREA NITROGEN 34 mg/dL (7-21); CALCIUM 9.7 mg/dL (8.4-10.5); GFR NON-AFRICAN AMERICAN 42
--- NOTE | 2017-11-21 15:16 | ED PDOC ---
Arrival/HPI - General Chief Complaint: Dizziness/Lightheaded Time Seen by Provider: 11/21/17 14:20 Historian: Patient - History of Present Illness Narrative History of Present Illness (Text): 11/21/17 14:42 87 year old female with past medical history of diabetes mellitus type 2, myelodysplastic syndrome on chemotherapy, hyperlipidemia, and dementia, presents to the Emergency Department accompanied by her daughter for evaluation of possible syncope prior to arrival. Daughter informs finding patient on the bathroom floor lying on her right side and covered in feces prior to arrival. Patient states she fell from the toilet seat after her bowel movement but does not recall experiencing any dizziness or lightheadedness prior to the incident. She denies symptoms of syncope and daughter says she's a reliable historian. Daughter just wasn't sure so she wanted to be extra careful and brought her in. Patient denies hitting her head or any loss of consciousness. Patient denies any somatic complaints. Patient denies any fever, chills, nausea, vomiting, diarrhea, abdominal pain, chest pain, shortness of breath, cough, headache, dizziness, neck pain, back pain, or any other complaints. Daughter informs patient received a blood transfusion 2 weeks ago and her last chemotherapy was on January. Time/Duration: Prior to Arrival Symptom Onset: Sudden Symptom Course: Unchanged Activities at Onset: Light Context: Home Past Medical History - Provider Review Nursing Documentation Reviewed: Yes - Infectious Disease Hx of Infectious Diseases: None - Tetanus Immunization Tetanus Immunization: Unknown - Cardiac Hx Hypertension: Yes - Pulmonary Hx Bronchitis: Yes Hx Pneumonia: Yes - Neurological Hx Alzheimer's Disease: Yes Hx Dementia: Yes - HEENT Hx HEENT Disorder: Yes Hx Cataracts: Yes (BOTH EYES) - Renal Hx Renal Disorder: No - Endocrine/Metabolic Hx Diabetes Mellitus Type 2: Yes - Hematological/Oncological Hx Anemia: Yes - Integumentary Hx Dermatological Disorder: No - Musculoskeletal/Rheumatological Hx Arthritis: Yes Hx Rheumatoid Arthritis: Yes - Gastrointestinal Hx Gastrointestinal Disorders: No - Genitourinary/Gynecological Hx Genitourinary Disorders: Yes (esbl /uti sepsis,SOME INCONTINENCY.WEARS PULLUPS.) - Psychiatric Hx Psychophysiologic Disorder: No Hx Substance Use: No - Surgical History Hx Tonsillectomy: Yes - Anesthesia Hx Anesthesia: Yes Hx Anesthesia Reactions: No Hx Malignant Hyperthermia: No - Suicidal Assessment Feels Threatened In Home Enviroment: No Family/Social History - Physician Review Nursing Documentation Reviewed: Yes Family/Social History: No Known Family HX Smoking Status: Never Smoked Hx Alcohol Use: No Hx Substance Use: No Allergies/Home Meds Allergies/Adverse Reactions: Allergies amoxicillin Allergy (Mild, Verified 11/21/17 14:11) RASH Home Medications: Home Meds Medication Instructions Recorded Confirmed Unobtainable 11/21/17 11/21/17 Review of Systems - Physician Review All systems were reviewed & negative as marked: Yes - Review of Systems Constitutional: absent: Fevers Respiratory: absent: SOB Cardiovascular: absent: Chest Pain, LEARY Gastrointestinal: absent: Abdominal Pain, Diarrhea, Nausea, Vomiting Musculoskeletal: absent: Back Pain, Neck Pain Neurological: absent: Headache, Dizziness Physical Exam Vital Signs Reviewed: Yes Vital Signs Temp Pulse Resp BP Pulse Ox 11/21/17 14:22 97.5 F L 70 17 133/55 L 98 Temperature: Afebrile Blood Pressure: Normal Pulse: Regular Respiratory Rate: Normal Appearance: Positive for: Well-Appearing, Non-Toxic, Comfortable Pain Distress: None Mental Status: Positive for: Alert and Oriented X 3 Finger Stick Blood Glucose: 82 - Systems Exam Head: Present: Atraumatic, Normocephalic Pupils: Present: PERRL Extroacular Muscles: Present: EOMI Conjunctiva: Present: Normal Mouth: Present: Moist Mucous Membranes Neck: Present: Normal Range of Motion Respiratory/Chest: Present: Clear to Auscultation, Good Air Exchange. No: Respiratory Distress, Accessory Muscle Use Cardiovascular: Present: Regular Rate and Rhythm, Normal S1, S2. No: Murmurs Abdomen: No: Tenderness, Distention, Peritoneal Signs Back: Present: Normal Inspection Upper Extremity: Present: Normal Inspection. No: Cyanosis, Edema Lower Extremity: Present: Normal Inspection. No: Edema Neurological: Present: GCS=15, CN II-XII Intact, Speech Normal Skin: Present: Warm, Dry, Normal Color. No: Rashes Psychiatric: Present: Alert, Oriented x 3, Normal Insight, Normal Concentration Medical Decision Making ED Course and Treatment: 11/21/17 14:42 Impression: 87 year old female presents to the Emergency Department for medical evaluation s/p fall. Differential Diagnosis included but are not limited to: Fall secondary to possible syncope r/o anemia vs. cardiac Plan: -- Labs -- CT of Head -- Chest X-ray -- IV Fluids -- Reassess and disposition Prior Visits: Notes and results from previous visits were reviewed. Progress Notes: EKG: Ordered, reviewed, and independently interpreted the EKG. Rate : 71 BPM Rhythm : NSR Interpretation : No ST-segment elevations or depressions, no T-wave inversions, normal intervals. 11/21/17 16:41 CT of Head reviewed by radiologist, shows: Generalized atrophy. Nonspecific white matter changes. Probable tiny left basal ganglia lacunar infarct. 11/21/17 16:59 CT head negative. Labs reviewed and hemoglobin at baseline. I spoke with patient and daughter about her care. They were explained all results and agreed to be discharged home. I explained the importance of follow up with her and her daughter who will make sure to follow up. I also explained to make sure to return to the ED if any symptoms reoccur, worsen or any other concern. - Lab Interpretations Lab Results: 11/21/17 14:50 Lab Results 11/21/17 14:50: PT 13.5 H, INR 1.18, APTT 25.6 11/21/17 14:50: WBC 5.8, RBC 2.59 L, Hgb 8.1 L, Hct 24.9 L, MCV 96.1 D, MCH 31.3, MCHC 32.5, RDW 19.6 H, Plt Count 217, MPV 11.2 H, Gran % 73.4 H, Lymph % (Auto) 17.1 L, [place] % (Auto) 5.1, Eos % (Auto) 3.9, Baso % (Auto) 0.5, Gran # 4.28, Lymph # (Auto) 1.0 L, [place] # (Auto) 0.3, Eos # (Auto) 0.2, Baso # (Auto) 0.03 11/21/17 14:23: POC Glucose (mg/dL) 82 - RAD Interpretation Radiology Orders: 11/21/17 14:42 CHEST PORTABLE [RAD] Stat - Medication Orders Current Medication Orders: Sodium Chloride (Sodium Chloride 0.9%) 500 mls @ 1,000 mls/hr IV .Q30M STA Stop: 11/21/17 15:11 Last Admin: 11/21/17 14:48 Dose: 1,000 mls/hr eMAR Start Stop Document 11/21/17 14:48 [facility] (Rec: 11/21/17 14:49 [email or web address] [id number]) Intravenous Solution Start Date 11/21/17 Start Time 14:48 End Date 11/21/17 End time 15:20 Total Infusion Time 32 - Scribe Statement The provider has reviewed the documentation as recorded by the Scribe Zeina Lopez. All medical record entries made by the Scribe were at my direction and personally dictated by me. I have reviewed the chart and agree that the record accurately reflects my personal performance of the history, physical exam, medical decision making, and the department course for this patient. I have also personally directed, reviewed, and agree with the discharge instructions and disposition. Disposition/Present on Arrival - Present on Arrival Any Indicators Present on Arrival: No History of DVT/PE: No History of Uncontrolled Diabetes: No Urinary Catheter: No History of Decub. Ulcer: No History Surgical Site Infection Following: None - Disposition Have Diagnosis and Disposition been Completed?: Yes Diagnosis: Fall Disposition: HOME/ ROUTINE Disposition Time: 17:01 Patient Problems: Current Active Problems Problem Status Onset Fall Acute Condition: IMPROVED Discharge Instructions (ExitCare): Preventing Falls in the Older Adult, Near Fainting (DC) Additional Instructions: CESAR GIVENS, thank you for letting us take care of you today. Your provider was Oli Garcia DO and you were treated for Fall. The emergency medical care you received today was directed at your acute symptoms. If you were prescribed any medication, please fill it and take as directed. It may take several days fo r your symptoms to resolve. Return to the Emergency Department if your symptoms worsen, do not improve, or if you have any other problems. Please contact your doctor or call one of the physicians/clinics you have been referred to that are listed on the Patient Visit Information form that is included in your discharge packet. Bring any paperwork you were given at discharge with you along with any medications you are taking to your follow up visit. Our treatment cannot replace ongoing medical care by a primary care provider outside of the emergency department. Thank you for allowing the [facility] team to be part of your care today. If you had an X-Ray or CT scan: A Radiologist will review the ED reading if any change in treatment is needed we will contact you. If you had a blood, urine, or wound culture: It will take several days for the results, if any change in treatment is needed we will contact you. If you had an STI test: It will take 48 hours for the results. Please call after 1 week if you have not heard back. Referrals: Jefferson Guerra MD [Primary Care Provider] - Follow up with primary Forms: [employer] [facility] (T[place]ese)
[2017-11-21 15:24] LABS: TROPONIN I < 0.01 ng/mL
--- NOTE | 2017-11-21 15:39 | RAD ---
HISTORY: Near-syncope COMPARISON: Chest x-ray performed 10/04/17 TECHNIQUE: Chest, one view. FINDINGS: Right-sided central venous catheter extends the cavoatrial junction. LUNGS: Mild pulmonary venous congestion. Mild bibasilar atelectasis. Please note that chest x-ray has limited sensitivity for the detection of pulmonary masses. PLEURA: No significant pleural effusion identified. No definite pneumothorax . CARDIOVASCULAR: Cardiomegaly. OSSEOUS STRUCTURES: Osseous demineralization. Degenerative changes. VISUALIZED UPPER ABDOMEN: Unremarkable. OTHER FINDINGS: None. IMPRESSION: Right-sided central venous catheter. Cardiomegaly. Mild pulmonary venous congestion. Mild bibasilar atelectasis.
--- NOTE | 2017-11-21 16:15 | CT ---
Date of service: 11/21/2017 PROCEDURE: CT HEAD WITHOUT CONTRAST. HISTORY: near syncope COMPARISON: Noncontrast head CT performed 04/20/16 TECHNIQUE: Axial computed tomography images were obtained through the head/brain without intravenous contrast. Radiation dose: Total exam DLP = 870.70 mGy-cm. This CT exam was performed using one or more of the following dose reduction techniques: Automated exposure control, adjustment of the mA and/or kV according to patient size, and/or use of iterative reconstruction technique. FINDINGS: HEMORRHAGE: No intracranial hemorrhage. BRAIN: Diffuse atrophy with prominence of the ventricles and sulci noted. Intracranial atherosclerosis. No mass effect or edema. Moderate scattered periventricular and subcortical white matter hypodensities, which are nonspecific, but often seen with chronic microvascular ischemic disease. Probable tiny left basal ganglia lacunar infarct. Please note that MRI with diffusion imaging is more sensitive in the detection of acute ischemic event. VENTRICLES: No hydrocephalus. CALVARIUM: Unremarkable. PARANASAL SINUSES: Unremarkable as visualized. No significant inflammatory changes. MASTOID AIR CELLS: Unremarkable as visualized. No inflammatory changes. OTHER FINDINGS: None. IMPRESSION: Generalized atrophy. Nonspecific white matter changes. Probable tiny left basal ganglia lacunar infarct.
[2017-11-21 17:20] VITALS: BP 149/55; PULSE 74; TEMP 98.4; O2SAT 96
[2017-11-21 17:32] VITALS: RESP 18
--- NOTE | 2017-11-22 09:50 | CARD ---
APPROVED REPORT Date of service: 11/21/2017 EKG Measurement Heart [id number] <Conclusion> Normal sinus rhythm STTW changes c/w ischemia
== END 2017-11-21 17:32 | disposition home or self-care (01) ==
LOC: ED 14:01
DX: Z04.3 Encounter for examination and observation following other accident (principal); W18.11XA Fall from or off toilet without subsequent striking against object, initial encounter; Y92.002 Bathroom of unspecified non-institutional (private) residence as the place of occurrence of the external cause; I10 Essential (primary) hypertension; E11.9 Type 2 diabetes mellitus without complications; D46.9 Myelodysplastic syndrome, unspecified; E78.5 Hyperlipidemia, unspecified; G30.9 Alzheimer's disease, unspecified; F02.80 Dementia in other diseases classified elsewhere, unspecified severity, without behavioral disturbance, psychotic disturbance, mood disturbance, and anxiety
CPT/HCPCS: 70450; 71045; 80053; 82550; 82948; 83615; 84484; 85025; 85610; 85730; 86850; 86870; 86900; 93005; 96360; 99285; J7040